=== PATIENT | female | born 1970 | race Two or more races ===

== ENCOUNTER 2020-05-25 10:38 | Outpatient (REF) | payer OTHER, SELFPAY ==
--- NOTE | 2020-05-25 10:45 | MM_ITS ---
EXAMINATION: MM SCREENING DIGITAL BREAST TOMOSYNTHESIS, BILATERAL CLINICAL INFORMATION: Screening. Asymptomatic. The lifetime risk of breast cancer based on the Tyrer-Cuzick Model is 7.8%. COMPARISON: Mammography: January 29, 2019 and studies dating back to March 03, 2012. TECHNIQUE: Digital breast tomosynthesis is performed in both the craniocaudal and mediolateral oblique views along with computer-aided detection (CAD). Synthesized 2D images are generated from the tomosynthesis. FINDINGS: The breasts are heterogeneously dense, which may obscure small masses (ACR BI-RADS breast composition Category c). There are no significant masses, abnormal calcifications, or other abnormalities. MM/MM tomosynthesis screening BI IMPRESSION: There are no significant changes from prior study. ASSESSMENT: BI-RADS 1: Negative RECOMMENDATION: Routine annual mammography screening. This patient's information was entered into a reminder system with a target due date for their next mammogram.
== END 2020-05-25 10:39 | disposition home or self-care (01) ==
LOC: HO.MAMMO 10:38
PROVIDERS: PCP Internal Medicine; Visit Provider Internal Medicine
DX: Z12.31 Encounter for screening mammogram for malignant neoplasm of breast (principal)
CPT/HCPCS: 77063; 77067

== ENCOUNTER 2020-06-09 09:35 | Outpatient (REF) | payer OTHER, SELFPAY ==
--- NOTE | 2020-06-09 09:45 | MR_ITS ---
EXAMINATION: MR ANGIOGRAPHY BRAIN WITHOUT CONTRAST CLINICAL INFORMATION: Daily persistent headache. Blurry vision for 2 weeks. COMPARISON: CT head from 03/16/2016. TECHNIQUE: 3D [id number] MR angiography was performed through the brain without the use of intravenous gadolinium and axial source images were reviewed along with rotating MIPs. FINDINGS: Normal flow-related signal within the anterior circulation without evidence of focal stenosis or occlusion of the intradural internal carotid, middle cerebral, or anterior cerebral arteries. Dominant right-sided vertebral artery. Otherwise, normal flow-related signal within the V4 segments of the vertebral arteries bilaterally. Normal appearance of the proximal posterior inferior cerebellar arteries bilaterally. Normal flow-related signal within the basilar artery and proximal portions of the superior cerebellar arteries. The P1 segments of the posterior cerebral arteries are mildly diminutive bilaterally. There is robust flow across bilateral posterior communicating arteries with persistent origins. Mild 0.2 cm sessile irregularity along the lateral wall of the paraophthalmic segment of the left ICA (image 93/164). Otherwise, no demonstrated intradural aneurysms. No additional significant abnormalities on limited evaluation of the intracranial structures. Rightward nasal septal deviation. Moderate mucous retention cyst within the left maxillary sinus. MR/MR angio head wo con IMPRESSION: 1. MRA without evidence of proximal occlusion or flow-limiting stenosis. 2. Slight irregularity along the lateral wall of the paraophthalmic segment of the left ICA may be artifactual or related to mild atherosclerotic disease. It would be difficult to fully exclude a tiny sessile aneurysm on the basis of this exam. No additional evidence of intracranial aneurysm. 3. Left maxillary mucous retention cyst.
== END 2020-06-09 09:36 | disposition home or self-care (01) ==
LOC: HO.MRI 09:35
PROVIDERS: Visit Provider Internal Medicine
DX: G44.52 New daily persistent headache (NDPH) (principal)
CPT/HCPCS: 70544

== ENCOUNTER 2021-03-21 11:19 | Outpatient (REF) | payer OTHER, SELFPAY ==
[2021-03-21 12:00] LABS: MANUAL DIFF FLAG NO
[2021-03-21 12:05] LABS: Basophils Percent Auto 0.5 % (0-2); Eosinophils Absolute Auto 0.1 X10*3/uL (0.0-0.4); Eosinophils Percent Auto 2.1 % (0-4); Hematocrit 38.8 % (37-47); Hemoglobin 12.4 g/dl (12.0-16.0); Lymphocytes Absolute Auto 2.1 X10*3/uL (1.2-4.9); Lymphocytes Percent Auto 54.9 % (20-40); Mean Corpuscular Hemoglobin 26.7 pg (27.0-33.0); Mean Corpuscular Volume 83.4 fL (80-98); Mean Platelet Volume 9.6 fL (9.4-12.3); Monocytes Absolute Auto 0.3 X10*3/uL (0.1-1.2); Monocytes Percent Auto 7.9 % (2-11); Neutrophils Absolute Auto 1.3 X10*3/uL (2.0-8.3); Neutrophils Percent Auto 34.6 % (45-73); Platelet Count 313 X10*3/uL (160-400); Red Blood Count 4.65 X10*6/uL (4.20-5.50); Red Cell Distribution Width 13.3 % (11.0-16.0); White Blood Count 3.8 X10*3/uL (4.8-10.8)
[2021-03-21 12:38] LABS: Alanine Aminotransferase 20 U/L (0-31); Albumin Level 4.2 g/dL (3.5-5.0); Alkaline Phosphatase 68 U/L (39-117); Anion Gap 12 (12-20); Aspartate Amino Transferase 20 U/L (5-31); Bilirubin Total 0.7 mg/dL (0.0-1.0); Blood Urea Nitrogen 10 mg/dL (9-16); Calcium 9.6 mg/dL (8.4-10.2); Carbon Dioxide 25 mmol/L (22-29); Chloride 109 mmol/L (96-108); Cholesterol 225 mg/dL; Estimated Glomerular Filt Rate > 60; Glucose Fasting 90 mg/dL (60-99); HDL Cholesterol 54 mg/dL; LDL Cholesterol Calculated 137 mg/dl; Sodium 142 mmol/L (135-145); Total Protein 7.5 g/dL (6.5-8.0); Triglycerides 170 mg/dL
[2021-03-27 13:17] LABS: Vitamin D 25-OH, D2 <4 ng/mL; Vitamin D 25-OH, D3 17 ng/mL; Vitamin D 25-OH, Total 17 ng/mL (30-100)
== END 2021-03-21 11:20 | disposition home or self-care (01) ==
LOC: HO.LAB 11:19
PROVIDERS: PCP Internal Medicine; Visit Provider Internal Medicine
DX: E55.9 Vitamin D deficiency, unspecified (principal); D64.9 Anemia, unspecified; K21.9 Gastro-esophageal reflux disease without esophagitis; E78.5 Hyperlipidemia, unspecified
CPT/HCPCS: 36415; 80053; 80061; 82306; 85025

== ENCOUNTER 2021-11-21 14:55 | Outpatient (REF) | payer OTHER, SELFPAY ==
--- NOTE | ~2021-11-21 | MR_ITS ---
MRI OF THE BRAIN WITHOUT IV CONTRAST INDICATION: Headache. COMPARISON: MRA head 06/09/2020. TECHNIQUE: Multiplanar multisequence MR imaging of the brain was obtained without IV contrast. FINDINGS: There is no hydrocephalus, extra-axial surface collection, or herniation. No parenchymal signal abnormality. The major flow voids at the skull base are preserved. There is no acute infarct on diffusion-weighted imaging. There is no intracranial hemorrhage on the gradient recalled echo acquisition. An 8mm unilocular pineal gland cyst abuts the upper tectal plate. The cerebellar tonsils are normally positioned. The cerebellum and brainstem are normal. The craniocervical junction is normal. Osseous marrow signal intensity is homogenous. The visualized soft tissues are unremarkable. Retention cyst within the left maxillary sinus. MR/MR head/brain wo con IMPRESSION: - No acute intracranial findings. - An 8mm unilocular pineal gland cyst abuts the upper tectal plate. - Retention cyst within the left maxillary sinus.
== END 2021-11-21 14:56 | disposition home or self-care (01) ==
LOC: HO.MRI 14:55
PROVIDERS: Visit Provider Internal Medicine
DX: R51.9 Headache, unspecified (principal)
CPT/HCPCS: 70551

== ENCOUNTER 2021-11-28 12:10 | Outpatient (REF) | payer OTHER, SELFPAY ==
[2021-11-28 12:21] LABS: MANUAL DIFF FLAG NO
[2021-11-28 13:08] LABS: Basophils Percent Auto 0.8 % (0-2); Eosinophils Absolute Auto 0.1 X10*3/uL (0.0-0.4); Eosinophils Percent Auto 1.9 % (0-4); Hematocrit 40.8 % (37.0-47.0); Hemoglobin 12.9 g/dl (12.0-16.0); Imm Gran Abs Auto 0.01 X10*3/uL (0.00-0.03); Imm Gran Pct Auto 0.3 % (0.0-0.4); Lymphocytes Percent Auto 54.5 % (20-40); Mean Corpuscular HGB Conc 31.6 g/dl (31.0-35.0); Mean Corpuscular Hemoglobin 26.4 pg (27.0-33.0); Mean Corpuscular Volume 83.4 fL (80.0-98.0); Mean Platelet Volume 9.5 fL (9.4-12.3); Monocytes Absolute Auto 0.3 X10*3/uL (0.1-1.2); Monocytes Percent Auto 8.8 % (2-11); Neutrophils Absolute Auto 1.2 x10*3/uL (2.0-8.3); Neutrophils Percent Auto 33.7 % (45-73); Platelet Count 322 X10*3/uL (160-400); Red Blood Count 4.89 X10*6/uL (4.20-5.50); Red Cell Distribution Width 13.2 % (11.0-16.0); White Blood Count 3.7 X10*3/uL (4.8-10.8)
[2021-11-28 13:35] LABS: Alanine Aminotransferase 16 U/L (0-31); Albumin Level 4.4 g/dL (3.5-5.0); Alkaline Phosphatase 71 U/L (39-117); Anion Gap 10 (12-20); Aspartate Amino Transferase 19 U/L (5-31); Bilirubin Total 0.9 mg/dL (0.0-1.0); Blood Urea Nitrogen 15 mg/dL (9-16); Calcium 10.1 mg/dL (8.4-10.2); Carbon Dioxide 28 mmol/L (22-29); Chloride 104 mmol/L (96-108); Cholesterol 268 mg/dL; Estimated Glomerular Filt Rate > 60; Glucose Fasting 92 mg/dL (60-99); HDL Cholesterol 60 mg/dL; LDL Cholesterol Calculated 180 mg/dl; Sodium 138 mmol/L (135-145); Triglycerides 140 mg/dL
[2021-11-28 13:57] LABS: Vitamin D 25-OH Total 17.7 ng/mL (>30)
== END 2021-11-28 12:11 | disposition home or self-care (01) ==
LOC: HO.LAB 12:10
PROVIDERS: PCP Internal Medicine; Visit Provider Internal Medicine
DX: K21.9 Gastro-esophageal reflux disease without esophagitis (principal); E78.5 Hyperlipidemia, unspecified; E55.9 Vitamin D deficiency, unspecified
CPT/HCPCS: 36415; 80053; 80061; 82306; 85025

== ENCOUNTER 2021-12-21 10:39 | Outpatient (REF) | payer OTHER, SELFPAY ==
--- NOTE | ~2021-12-21 | MM_ITS ---
EXAMINATION: MM SCREENING DIGITAL BREAST TOMOSYNTHESIS, BILATERAL CLINICAL INFORMATION: Screening. Asymptomatic. The lifetime risk of breast cancer based on the Tyrer-Cuzick Model is 5%. COMPARISON: Mammography: 05/25/2020, 01/29/2019, 07/19/2017 TECHNIQUE: Digital breast tomosynthesis is performed in both the craniocaudal and mediolateral oblique views along with computer-aided detection (CAD). Synthesized 2D images are generated from the tomosynthesis. FINDINGS: There are scattered areas of fibroglandular density (ACR BI-RADS breast composition Category b). There are no significant masses, abnormal calcifications, or other abnormalities. Breast tissue composition borders on heterogeneously dense. Parenchymal pattern is similar to prior studies. The axilla and skin contours are unremarkable. No significant changes. MM/MM tomosynthesis screening BI IMPRESSION: No mammographic evidence of malignancy. ASSESSMENT: BI-RADS 1: Negative RECOMMENDATION: Routine annual mammography screening. This patient's information was entered into a reminder system with a target due date for their next mammogram.
== END 2021-12-21 10:40 | disposition home or self-care (01) ==
LOC: HO.MAMMO 10:39
PROVIDERS: PCP Internal Medicine; Visit Provider Internal Medicine
DX: Z12.31 Encounter for screening mammogram for malignant neoplasm of breast (principal)
CPT/HCPCS: 77063; 77067

== ENCOUNTER 2022-09-25 10:49 | Outpatient (REF) | payer OTHER, SELFPAY ==
[2022-09-25 11:10] LABS: MANUAL DIFF FLAG NO
[2022-09-25 11:47] LABS: Basophils Absolute Auto 0.1 X10*3/uL (0.0-0.2); Basophils Percent Auto 1.1 % (0-2); Eosinophils Absolute Auto 0.2 X10*3/uL (0.0-0.4); Eosinophils Percent Auto 3.4 % (0-4); Hematocrit 40.8 % (37.0-47.0); Hemoglobin 12.9 g/dl (12.0-16.0); Imm Gran Abs Auto 0.01 X10*3/uL (0.00-0.03); Imm Gran Pct Auto 0.2 % (0.0-0.4); Lymphocytes Absolute Auto 2.4 X10*3/uL (1.2-4.9); Mean Corpuscular HGB Conc 31.6 g/dl (31.0-35.0); Mean Corpuscular Hemoglobin 26.3 pg (27.0-33.0); Mean Corpuscular Volume 83.1 fL (80.0-98.0); Mean Platelet Volume 9.1 fL (9.4-12.3); Monocytes Absolute Auto 0.4 X10*3/uL (0.1-1.2); Neutrophils Absolute Auto 1.4 x10*3/uL (2.0-8.3); Neutrophils Percent Auto 31.3 % (45-73); Platelet Count 345 X10*3/uL (160-400); Red Blood Count 4.91 X10*6/uL (4.20-5.50); Red Cell Distribution Width 13.1 % (11.0-16.0); White Blood Count 4.4 X10*3/uL (4.8-10.8)
[2022-09-25 11:55] LABS: Influenza A PCR NEGATIVE (Negative); Influenza B PCR NEGATIVE (Negative); Resp Syncy Virus RNA Qual PCR NEGATIVE (Negative); SARS COV2 PCR INHOUSE NEGATIVE (Negative)
[2022-09-25 12:34] LABS: Alanine Aminotransferase 16 U/L (0-31); Albumin Level 4.2 g/dL (3.5-5.0); Alkaline Phosphatase 62 U/L (39-117); Anion Gap 11 (12-20); Aspartate Amino Transferase 17 U/L (5-31); Bilirubin Total 0.6 mg/dL (0.0-1.0); Blood Urea Nitrogen 15 mg/dL (9-16); Calcium 9.4 mg/dL (8.4-10.2); Carbon Dioxide 25 mmol/L (22-29); Chloride 107 mmol/L (96-108); Cholesterol 228 mg/dL; Estimated Glomerular Filt Rate > 60; Glucose Fasting 92 mg/dL (60-99); HDL Cholesterol 51 mg/dL; LDL Cholesterol Calculated 158 mg/dl; Potassium 4.3 mmol/L (3.3-5.1); Sodium 139 mmol/L (135-145); Total Protein 7.3 g/dL (6.5-8.0); Triglycerides 97 mg/dL
[2022-09-25 12:51] LABS: Vitamin D 25-OH Total 13.8 ng/mL (>30)
== END 2022-09-25 10:50 | disposition home or self-care (01) ==
LOC: HO.LAB 10:49
PROVIDERS: PCP Internal Medicine; Visit Provider Internal Medicine
DX: Z20.822 Contact with and (suspected) exposure to COVID-19 (principal); E78.5 Hyperlipidemia, unspecified; D64.9 Anemia, unspecified; G44.52 New daily persistent headache (NDPH); E55.9 Vitamin D deficiency, unspecified; R09.89 Other specified symptoms and signs involving the circulatory and respiratory systems
CPT/HCPCS: 0241U; 80053; 80061; 82306; 85025

== ENCOUNTER 2022-11-07 10:27 | Outpatient (REF) | payer OTHER, SELFPAY ==
--- NOTE | ~2022-11-07 | FL_ITS ---
EXAMINATION: FL BARIUM SWALLOW CLINICAL INFORMATION: Dysphasia COMPARISON: Incomplete study of 10/31/2018. TECHNIQUE: Barium swallow examination is performed using fluoroscopic evaluation in addition to multiple fluoroscopic spot views. The patient is imaged both upright and prone and using both thick and thin sulfate along with effervescent granules. Fluoroscopy time: 1.5 minutes DAP: 5.609 Gy-cm2 Images: 73 FINDINGS: There is normal apposition of the vocal cords while saying E. There is normal elevation of the soft palate while saying candy. Patient swallowed thin and thick barium. The patient was unable to swallow half-inch diameter barium tablet. No nasopharyngeal reflux or tracheal aspiration was noted. Patient did have delay in swallowing. No cricopharyngeal hypertrophy or Zenker's diverticulum. No persistent stricture or mucosal abnormality. No gastroesophageal reflux was elicited including with water siphon test. FL/FL barium swallow IMPRESSION: Inability to swallow barium tablet. Mild delay in swallowing.
== END 2022-11-07 10:28 | disposition home or self-care (01) ==
LOC: HO.XRAY 10:27
PROVIDERS: PCP Internal Medicine; Visit Provider Internal Medicine
DX: R13.10 Dysphagia, unspecified (principal)
CPT/HCPCS: 74220

== ENCOUNTER 2022-11-12 10:34 | Emergency (ER) | payer OTHER, SELFPAY ==
[2022-11-12 10:38] VITALS: BP 114/82; PULSE 110; RESP 18; TEMP 36.7; O2SAT 99; BMI 27.2
--- NOTE | 2022-11-12 11:11 | ED_ITS ---
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 Patient states that over the last 2 days she has had a sore throat, headache, and earache. Patient denies any dizziness, lightheadedness, abdominal pain, nausea, vomiting, fever, chills, blurry vision, double vision, loss of vision, chest pain, difficulty breathing, shortness of breath, back pain, night sweats, pain with urination, increased urinary frequency, increased urinary urgency, blood in her urine or stool, syncope or a near syncopal episode, recent trauma or falls, bowel incontinence, bladder incontinence, bowel retention, bladder retention, or any other complaints at this time. Onset (ago): day(s) (2) Severity: mild Severity scale (1-10): 2 Relieving factors: none Exacerbating factors: none Associated symptoms: denies other symptoms Treatments prior to arrival: none Related Data Previous Rx's Medication Instructions Recorded sumatriptan succinate 25 mg tablet 25 mg PO Q2-4H PRN migraine 03/25/22 headache 30 days #9 tabs famotidine 40 mg tablet 40 mg PO BID 30 days #60 tabs 06/12/22 cholecalciferol (vitamin D3) 50 50 mcg PO DAILY 90 days #90 caps 09/26/22 mcg (2,000 unit) capsule penicillin V potassium 250 mg/5 mL 500 mg (10 mL) PO QID 10 days #400 11/12/22 oral solution mL penicillin V potassium 500 mg 500 mg PO BID 10 days #20 tabs 11/12/22 tablet Allergies Allergy/AdvReac Type Severity Reaction Status Date / Time amitriptyline Allergy Intermediate constipatio Verified 09/25/22 10:24 n omeprazole Allergy Intermediate inadequate Verified 09/25/22 10:24 response pantoprazole Allergy Intermediate inadequate Verified 09/25/22 10:24 response ranitidine Allergy Intermediate inadequate Verified 09/25/22 10:24 response tree nut [TREE NUT] Allergy Intermediate THROAT Verified 09/25/22 10:24 ITCHES FRUIT, SKINS Allergy Intermediate THROAT Uncoded 09/25/22 10:24 ITCHES Review of Systems Constitutional: Constitutional: Reports no additional constitutional complaints, Denies chills, Denies fever(s), Reports headache(s) and Denies night sweats Eyes: Eyes: Reports no additional eye complaints, Denies blurry vision, Denies change in vision, Denies diplopia, Denies eye discharge, Denies loss of vision and Denies eye pain ENT: Denies dizziness, Reports headache(s) and Reports sore throat Cardiovascular: Cardiovascular: Reports no additional cardiovascular complaints, Denies chest pain, Denies lightheadedness, Denies Loss of Consciousness and Denies dyspnea Respiratory: Respiratory: Reports no additional respiratory complaints and Denies dyspnea Gastrointestinal: Gastrointestinal: Reports no additional gastrointestinal complaints, Denies abdominal pain, Denies melena, Denies hematochezia, Denies change in bowel habits and Denies change in stool character Genitourinary: Genitourinary: Denies hematuria, Denies urinary frequency, Denies dysuria, Denies urinary incontinence, Denies urinary hesitancy and Denies urinary urgency Musculoskeletal: Musculoskeletal: Reports no additional musculoskeletal complaints, Denies numbness and Denies tingling Neurologic: Denies dizziness, Reports headache(s), Denies loss of vision, Denies numbness and Denies tingling Psychiatric: Psychiatric: Reports no additional psychiatric complaints Endocrine: Endocrine: Reports no additional endocrine complaints Hematologic/Lymphatic: Hematologic/Lymphatic: Reports no additional hematologic/lymphatic complaints Allergic/Immunologic: Allergic/Immunologic: Reports no additional allergic/immunologic complaints FOR[facility]LY [facility], [facility] Past Medical History Attestation statement: The following information was validated with the patient. Source: old records reviewed and nursing notes reviewed Medical History Callus of foot Dyslipidemia GERD (gastroesophageal reflux disease) Headache Hypovitaminosis D Pineal gland cyst Surgical History History of tubal ligation Family History Family History Father Medical history unknown Mother Diabetes Hypertension Brother Homicide Maternal Grandmother Myocardial infarction Brother Homicide Brother In good health Daughter In good health Daughter In good health Son In good health Son In good health Social History Social History Housing: Apartment Alcohol intake: never Patient Tobacco Use Status: Never used Tobacco e-Cigarette/Vaping Use: Never Used Second Hand Smoke Exposure: No Advance Directives: No Advance Directives Information Provided: No service: No Current occupational status: other Cognitive needs: No Hearing needs: No Vision needs: No Physical Exam ED Vital Signs: Vital Signs - 24 hr 11/12/22 10:38 Temperature 98.1 F Pulse Rate 110 H Respiratory Rate 18 Blood Pressure 114/82 Pulse Oximetry 99 Oxygen Delivery Method Room Air BMI result Body Mass Index 27.2 Const General: cooperative, no acute distress, alert and awake Nutritional Appearance: well nourished Orientation/consciousness: patient oriented x3 Limitations: no limitations HENMT Head: Yes normal to inspection and Yes atraumatic Ears: hearing grossly normal bilaterally and external ears normal General nose exam: Normal external nose present, no nasal discharge noted and no epistaxis Face and sinus: Yes normal facial exam, No abrasion and No laceration Mouth: Normal oral and palatal mucosa present, no drooling and no muffled voice Throat: Yes abnormal tonsil (erythema and exudates present) Eyes General: appearance normal, both eyes and all related structures Periorbital: periorbital findings normal Eyelids: Yes eyelids normal Conjunctivae: conjunctivae normal Pupils: Equal, round and reactive pupils present EOM: EOMs intact bilaterally Neck Neck: Yes normal visual inspection, Yes full ROM and Yes no lymphadenopathy Chest Chest palpation & inspection: normal inspection of the chest Resp Effort & Inspection: normal respiratory effort and able to speak in complete sentences GI Inspection: Yes normal to inspection Neuro General: patient oriented x3 and moves all extremities Cranial nerves: Yes Equal, round and reactive pupils present Cognition (Neuro): normal cognition Motor exam (neuro): 5/5 motor strength present throughout Sensory Exam: Normal double simultaneous stimulation for sensation Coordination: [id number] test normal Extrem General: Yes normal to inspection, Yes full ROM and Yes capillary refill normal Psych Appearance: grossly normal Mental Status: mental status grossly normal Affect: normal affect Attitude: cooperative Thought process: Normal thought process present Thought content: Normal thought content present Insight: Good insight present (Psych) Medications Administered Discontinued Medications Generic Name Dose Route Start Last Admin Trade Name Freq PRN Reason Stop Dose Admin Acetaminophen 975 mg 11/12/22 12:24 11/12/22 12:40 Acetaminophen 325 Mg Tablet PO 11/12/22 12:25 975 mg ONCE ONE Administration Penicillin V Potassium 500 mg 11/12/22 12:24 11/12/22 12:40 Penicillin V Potassium 250 Mg Tablet PO 11/12/22 12:25 500 mg ONCE ONE Administration Medical Decision Making Medical Decision Making [facility] Narrative: Patient is a 52 year old assigned female at with a history of GERD presenting to the emergency department today with a sore throat and a headache. Patient's physical exam showed bilateral tonsil erythema and exudates. Patient's strep test was positive. I explained my physical exam findings as well as all test results to the patient. I answered all questions asked by the patient. I stressed the importance of the patient taking her medication as prescribed. I stressed the importance of the patient following up with her primary care provider. I stressed the importance of the patient returning to the emergency department immediately if her symptoms were to worsen or if she were to develop any dizziness, shortness of breath, difficulty breathing, chest pain, blurry vision, loss of vision, nausea, vomiting, abdominal pain, fever, chills, back pain, or any other complaints. Patient verbalized agreement and understanding with this treatment plan and discharge. Differential Diagnosis Differential Diagnoses: The differential diagnosis associated with the presentation includes strep pharyngitis Lab Data [facility] Lab Attestation statement: I reviewed the patient's lab results. Labs: Lab Results 11/12/22 11/12/22 11/12/22 Range/Units 11:31 11:31 11:42 COVID-19 (HERNÁN) Negative (Negative) COVID-19 Clin Com See Note Influenza Type A (ROXIE) Negative (Negative) Influenza Type B (ROXIE) Negative (Negative) Influenza A & B Note See Note S. pyogenes GrpA ROXIE Positive A (Negative) Discharge Plan Discharge Clinical Impression: Strep pharyngitis Patient Disposition: Home, Self-Care Instructions: Strep Throat (DC) Additional Instructions: Follow up with your primary care provider. Return to the emergency department immediately if your symptoms worsen or if you develop any dizziness, shortness of breath, difficulty breathing, chest pain, blurry vision, loss of vision, nausea, vomiting, abdominal pain, fever, chills, back pain, or any other complaints. Franco un seguimiento con laguna proveedor de atenci?n primaria. Regrese al departamento de emergencias de inmediato si cristi s?ntomas empeoran o si presenta mareos, falta de aire, dificultad para respirar, dolor de pecho, visi?n borrosa, p?rdida de la visi?n, n?useas, v?mitos, dolor abdominal, fiebre, escalofr?os, dolor de espalda o cualquier otras quejas. Prescriptions: New penicillin V potassium 500 mg tablet 500 mg PO BID 10 Days Qty: 20 0RF penicillin V potassium 250 mg/5 mL recon soln 500 mg PO QID 10 Days Qty: 400 0RF No Action sumatriptan succinate 25 mg tablet 25 mg PO Q2-4H PRN (Reason: migraine headache) 30 Days Qty: 9 3RF Rx Instructions: do not exceed 8 doses per 24 hrs famotidine 40 mg tablet 40 mg PO BID 30 Days Qty: 60 3RF cholecalciferol (vitamin D3) 50 mcg (2,000 unit) capsule 50 mcg PO DAILY 90 Days Qty: 90 1RF Referrals: Aisha Meza MD [Primary Care Provider] - Interventions: ED Discharge Assessment Last Done: 11/12/22 12:41 Discharge Date/Time: 11/12/22 12:42 Print Language: Kazakh
[2022-11-12 11:57] LABS: COVID-19 Test Negative (Negative); IDNOW Serial# 55D5AD1C; IDNOW Serial# 9DB6401D; Influenza A Negative (Negative); Influenza B2 Negative (Negative)
[2022-11-12 12:08] LABS: IDNOW Serial# 08D9AD1C; Strep A Nucleic Acid Positive (Negative)
[2022-11-12] MEDS: Penicillin V Potassium 250 MG TABLET 500 MG PO (12:40)
[2022-11-12] MEDS: Acetaminophen 325 MG TABLET 975 MG PO (12:40)
== END 2022-11-12 12:42 | disposition home or self-care (01) ==
PROVIDERS: Emergency Provider Emergency Medicine; PCP Internal Medicine
DX: J02.9 Acute pharyngitis, unspecified (principal); Z20.822 Contact with and (suspected) exposure to COVID-19; Z20.828 Contact with and (suspected) exposure to other viral communicable diseases
CPT/HCPCS: 87502; 87635; 87651; 99283

== ENCOUNTER → 2022-12-25 10:46 | Outpatient (BNVA) | payer OTHER, SELFPAY | PROVIDERS: PCP Internal Medicine; Visit Provider Internal Medicine | DX: Z12.11 Encounter for screening for malignant neoplasm of colon (principal); R93.3 Abnormal findings on diagnostic imaging of other parts of digestive tract | CPT/HCPCS: 99202 ==

== ENCOUNTER 2023-01-01 10:19 | Outpatient (REF) | payer OTHER, SELFPAY ==
--- NOTE | ~2023-01-01 | MR_ITS ---
EXAMINATION: MR BRAIN WITHOUT AND WITH CONTRAST CLINICAL INFORMATION: 52-year-old with pineal cyst. COMPARISON: 11/21/2021 MRI. TECHNIQUE: Multiplanar, multisequence MRI of the brain was obtained before and after the intravenous administration of 6.5 mL Gadavist. FINDINGS: Brain Volume: Within normal limits within the limitations of qualitative assessment. Structural: Redemonstrated is a unilocular benign pineal cyst measuring 0.9 cm greatest dimension, unchanged in appearance from the previous study, which abuts the superior tectal plate. Brain and Meninges: DWI sequence demonstrates no restricted diffusion to suggest acute or subacute cerebral ischemia. The brain parenchyma is normal in morphology and signal intensity. Souza-white matter interface is preserved. No enhancing intracranial mass lesions, extra-axial fluid collections, pathologic intracranial enhancement, or significant mass effect identified. Gradient refocused imaging demonstrates no abnormal susceptibility-weighted signal loss to suggest hemorrhage, hemosiderin staining or abnormal mineralization. Ventricles and Subarachnoid Spaces: The ventricular system and subarachnoid spaces are within normal range; there is no hydrocephalus. Orbital Structures: The visualized orbital structures are grossly unremarkable within the limitations of the study. Vascular: Signal voids are noted in the visualized major intracranial vessels. Osseous Structures, Sinuses/Mastoids, Extracranial Soft Tissues: Bone marrow signal intensity appears within normal limits. Small right mastoid effusion noted on current exam which is a new finding and is nonspecific. Prominent retention cyst left maxillary sinus, stable in appearance. Visualized extracranial soft tissue structures are unremarkable. MR/MR head/brain wo/w con IMPRESSION: 1. Stable 0.9 cm benign pineal cyst. 2. Otherwise normal MRI of the brain without and with contrast. 3. Small right mastoid effusion which is a new finding, nonspecific.
== END 2023-01-01 10:20 | disposition home or self-care (01) ==
LOC: HO.MRI 10:19
PROVIDERS: PCP Internal Medicine; Visit Provider Neurological Surgery
DX: D35.4 Benign neoplasm of pineal gland (principal)
CPT/HCPCS: 70553; A9585

== ENCOUNTER 2023-03-05 14:44 | Outpatient (AMB) | payer OTHER, SELFPAY ==
--- NOTE | 2023-03-05 14:48 | MHC.PC.OV ---
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 Accompanied by: Self / Same As Patient Allergies amitriptyline Allergy (Intermediate, Verified 03/05/23 15:04) constipation omeprazole Allergy (Intermediate, Verified 03/05/23 15:04) inadequate response pantoprazole Allergy (Intermediate, Verified 03/05/23 15:04) inadequate response ranitidine Allergy (Intermediate, Verified 03/05/23 15:04) inadequate response tree nut [TREE NUT] Allergy (Intermediate, Verified 03/05/23 15:04) THROAT ITCHES FRUIT, SKINS Allergy (Intermediate, Uncoded 03/05/23 15:04) THROAT ITCHES Medication List - Last Reconciled 03/05/23 by Aisha Olvera MD cholecalciferol (vitamin D3) 50 mcg PO DAILY 90 days famotidine 40 mg PO BID 30 days peg 3350-electrolytes 236-22.74-6.74 -5.86 gram (Golytely) 240 mL PO Q10M sucralfate 1 g (10 mL) PO QID sumatriptan succinate 25 mg PO Q2-4H PRN 30 days Tobacco use date assessed: 09/25/22 Dental Screening Dental Screen Date: 03/05/23 Did you have a dental visit in the last 12 months?: Yes Did you have a dental problem in the last 6 months where you did not have access to dental care?: No Was dental information given to patient?: Patient has dentist HPI HPI Comments History of Present Illness Details This is a 52-year-old female that comes for her physical exam. Last mammogram was over a year ago when she complains of left breast mass at 02:00 o'clock that has been present for few weeks. No nipple discharge. Will have endoscopy and colonoscopy this month. Last Pap smear was over 3 years ago. Occasional chest pain that happens at rest most likely not cardiac in origin. No shortness of breath. Aware of the MRI of the brain results. [facility] Medical History (Updated 03/05/23 @ 15:23 by Aisha Olvera MD) Callus of foot Dyslipidemia GERD (gastroesophageal reflux disease) Headache Hypovitaminosis D Pineal gland cyst Surgical History History of tubal ligation Family History Father Medical history unknown Mother Diabetes Hypertension Brother Homicide Maternal Grandmother Myocardial infarction Brother Homicide Brother In good health Daughter In good health Daughter In good health Son In good health Son In good health Social History Housing: Apartment Alcohol intake: never Patient Tobacco Use Status: Never used Tobacco e-Cigarette/Vaping Use: Never Used Second Hand Smoke Exposure: No service: No Current occupational status: other Cognitive needs: No Hearing needs: No Vision needs: No Questionnaire PHQ-9 Over the last 2 weeks, how often have you been bothered by any of the following problems? 1. Little interest or pleasure in doing things: not at all 2. Feeling down, depressed, or hopeless: not at all 3. Trouble falling or staying asleep, or sleeping too much: not at all 4. Feeling tired or having little energy: not at all 5. Poor appetite or overeating: not at all 6. Feeling bad about yourself - or that you are a failure or have let yourself or your family down: not at all 7. Trouble concentrating on things, such as reading the newspaper or watching television: not at all 8. Moving or speaking so slowly that other people could have noticed. Or the opposite - being so fidgety or restless that you have been moving around a lot more than usual: not at all 9. Thoughts that you would be better off or of hurting yourself in some way: not at all Total score: 0 Depression Screening Interpretation: Negative 70379 - PHQ-9 Billing: Yes Source: Developed by Drs. Benjamín Patel, Lolis Bush, Del Nino and colleagues, with an educational kiki from [employer]. Thrive Questionnaire Date Thrive assessed: 03/05/23 I am a: Patient What is your living situation today?: I have a steady place to live Within the past 12 months, did the food you bought not last and you didn't have the money to get more?: Never true Within the past 12 months, did you worry whether your food would run out before you got money to buy more?: Never true Do you have trouble paying for medicines?: No Do you have trouble getting transportation to medical appointments?: No Do you have trouble paying your heating and electricity bill?: No Do you have trouble taking care of your child, family member or friend?: No Do you have trouble with day-to-day activities such as bathing, preparing meals, shopping, managing finances, etc.?: No Are you currently unemployed and looking for a job?: No Are you interested in more education?: No Please select the resources that you would like help with: None Currently or been in a relationship where the following occur: no concerns reported AUDIT C Alcohol Use Questionnaire (AUDIT-C) 1. How often do you have a drink containing alcohol?: Never Total Score: 0 Score Reviewed/Action Taken: No AGAPITO-7 AMB Questionnaire AGAPITO-7 Date AGAPITO - 7 assessed: 03/05/23 Feeling nervous, anxious, or on edge: 0 = Not at all Not being able to stop or control worryin = Not at all Worrying too much about different things: 0 = Not at all Trouble relaxin = Not at all Being so restless that it is hard to sit still: 0 = Not at all Becoming easily annoyed or irritable: 0 = Not at all Feeling afraid as if something awful might happen: 0 = Not at all Total AGAPITO-7 score (0-4 normal; 5-9 mild; 10-14 moderate; 15-21 severe): 0 Source: Developed by Drs. Benjamín Patel, Lolis Bush, Del Nino and colleagues, with an educational kiki from [employer]. AGAPITO-7 Assessment Billing AGAPITO-7 Assessment Tool: AGAPITO-7 Assessment 91818 Review of Systems Const All systems reviewed & are unremarkable except as noted in HPI and below Eyes Reports no additional complaints, Denies change in vision and Denies other visual disturbances Card Denies chest pain at rest, Denies chest pain with activity, Denies edema, Denies irregular heart rhythm, Denies claudication, Denies dyspnea, Denies dyspnea on exertion, Denies orthopnea, Denies paroxysmal nocturnal dyspnea and Denies slow heart rate Resp Denies cough, Denies dyspnea and Denies dyspnea on exertion GI Denies abdominal pain, Denies change in bowel habits, Denies excessive flatus, Denies nausea and Denies vomiting Denies urinary incontinence, Denies urinary hesitancy and Denies urinary urgency Musc Denies abnormal gait, Denies atrophy, Denies deformity and Denies limited range of motion Skin/Breast Denies bleeding lesions, Reports breast mass, Denies changing lesions and Denies rash Neuro Denies abnormal gait and Denies lack of coordination Physical exam (Primary Care) Vital Signs: Last Vital Signs BP 122/80 03/05/23 14:50 BMI result Body Mass Index 29.7 Tobacco/Smoking Status: Tobacco use Status Tobacco use date assessed 09/25/22 03/05/23 14:54 Patient Tobacco Use Status Never used Tobacco 03/05/23 14:54 e-Cigarette/Vaping Use Never Used 03/05/23 14:54 PHQ-9: PHQ-9 Score PHQ-9: Total score 0 03/05/23 14:54 Depression Screening Interpretation: Negative Thrive Assessment: Date of Thrive Assessment Date Thrive assessed 03/05/23 03/05/23 14:54 Currently or been in a relationship where the following occur: no concerns reported Const Orientation/consciousness: patient oriented x3 [facility] Head: Yes normal to inspection, Yes normocephalic and Yes atraumatic Ears: external ears normal Eyes General: appearance normal, both eyes and all related structures Eyelids: Yes eyelids normal Conjunctivae: conjunctivae normal Neck Neck: Yes normal visual inspection and Yes supple Chest Breast/axilla palpation: abnormal palpation of the breast (Left breast mass at 02:00 o'clock) Resp Effort & Inspection: normal respiratory effort Auscultation: clear to auscultation bilaterally Cardio Jugular venous distension: no JVD Rate: regular rate Rhythm: regular rhythm Heart sounds: S1 normal heart sound present and S2 normal heart sound present GI Inspection: Yes normal to inspection Palpation (GI): Soft to palpation and nontender Auscultation: normal bowel sounds Skin General skin exam: no rashes or lesions noted Neuro General: patient oriented x3 and no focal motor deficits Extrem General: Yes full ROM Psych Appearance: grossly normal Assessment and Plan Assessment & Plan (1) Physical exam: Code(s): Z00.00 - Encounter for general adult medical examination without abnormal findings Plan: Repeat in a year Orders: Orders MM diagnostic mammo BI Today N63.20 - Unspecified lump in the left breast, unspecified quadrant Comprehensive [place]. Panel Fast Today E78.5 - Hyperlipidemia, unspecified Lipid Panel Today E78.5 - Hyperlipidemia, unspecified Vitamin D 25-OH Total Today E55.9 - Vitamin D deficiency, unspecified ECG 12 lead EKG Today E78.5 - Hyperlipidemia, unspecified, R07.9 - Chest pain, unspecified Referrals [facility] Referral Z12.4 - Encounter for screening for malignant neoplasm of cervix Coding Level of Care Code Est Pt Prev Care 40-64y(46761) Diagnoses Physical exam Z00.00 Additional Codes AGAPITO-7 Assessment Billing - AGAPITO-7 Assessment Tool: AGAPITO-7 Assessment 45317 ([id number]) Time Spent (min) 30
[2023-03-05 14:50] VITALS: BP 122/80; BMI 29.7
== END 2023-03-05 15:26 | disposition home or self-care (01) ==
PROVIDERS: PCP Internal Medicine; Visit Provider Internal Medicine
DX: Z00.00 Encounter for general adult medical examination without abnormal findings (principal)
CPT/HCPCS: 99396

== ENCOUNTER 2024-01-21 08:10 | Outpatient (AMB) | payer OTHER, SELFPAY ==
[2024-01-21 08:20] VITALS: BP 118/78; BMI 30.1
--- NOTE | 2024-01-21 08:20 | A.OFFPC_ITS ---
Vital Signs 01/21/24 08:20 Height 4 ft 11 in Weight 149 lb BMI 30.1 BP 118/78 Blood Pressure Location Lt brachial Position Sitting Intake Visit Reasons: migrane Intake Note: Patient here for a follow up migraines with nausea, loss of voice Venereal Disease Control Head Required: No Accompanied by: Self / Same As Patient Allergies amitriptyline Allergy (Intermediate, Verified 01/21/24 08:42) constipation tree nut [TREE NUT] Allergy (Intermediate, Verified 01/21/24 08:42) THROAT ITCHES omeprazole Adverse Reaction (Intermediate, Verified 01/21/24 08:42) inadequate response pantoprazole Adverse Reaction (Intermediate, Verified 01/21/24 08:42) inadequate response ranitidine Adverse Reaction (Intermediate, Verified 01/21/24 08:42) inadequate response FRUIT, SKINS Allergy (Intermediate, Uncoded 01/21/24 08:42) THROAT ITCHES Medication List - Last Reconciled 01/21/24 by Aisha Olvera MD cholecalciferol (vitamin D3) 50 mcg PO DAILY 90 days famotidine 40 mg PO BID 30 days sumatriptan succinate 25 mg PO Q2-4H PRN 30 days Tobacco use date assessed: 01/21/24 Dental Screening Dental Screen Date: 01/21/24 Did you have a dental visit in the last 12 months?: Yes Did you have a dental problem in the last 6 months where you did not have access to dental care?: No Was dental information given to patient?: Patient has dentist HPI HPI Comments History of Present Illness Details This is a 53-year-old female with chronic GERD and low vitamin-D that complains of voice hoarseness that has been present for about a year and I will refer her to ENT. GERD still somewhat present with medications and I will order upper GI series. GERD might be related to this voice hoarseness. On vitamin-D supplements for her low vitamin-D. She also has a new daily persistent headache that has been present for the past few weeks. Will be referred to Neurology and add Topamax at bedtime for migraine prophylaxis. She said her headaches are worsening. She also has a pineal gland cyst that was benign last year and MRI of the brain was order to see if it has changed. No chest pain or shortness on breath. [facility] Medical History (Updated 01/21/24 @ 08:48 by Aisha Olvera MD) Pineal gland cyst Hypovitaminosis D Dyslipidemia Callus of foot Headache GERD (gastroesophageal reflux disease) Surgical History History of esophagogastroduodenoscopy (EGD) History of tubal ligation Family History Father Medical history unknown Mother Diabetes Hypertension Brother Homicide Maternal Grandmother Myocardial infarction Brother Homicide Brother In good health Daughter In good health Daughter In good health Son In good health Son In good health Social History Housing: Apartment Alcohol intake: never Patient Tobacco Use Status: Never used Tobacco e-Cigarette/Vaping Use: Never Used Second Hand Smoke Exposure: No service: No Current occupational status: other Cognitive needs: No Hearing needs: No Vision needs: Yes Questionnaire PHQ-9 Over the last 2 weeks, how often have you been bothered by any of the following problems? 1. Little interest or pleasure in doing things: not at all 2. Feeling down, depressed, or hopeless: not at all 3. Trouble falling or staying asleep, or sleeping too much: not at all 4. Feeling tired or having little energy: not at all 5. Poor appetite or overeating: not at all 6. Feeling bad about yourself - or that you are a failure or have let yourself or your family down: not at all 7. Trouble concentrating on things, such as reading the newspaper or watching television: not at all 8. Moving or speaking so slowly that other people could have noticed. Or the opposite - being so fidgety or restless that you have been moving around a lot more than usual: not at all 9. Thoughts that you would be better off or of hurting yourself in some way: not at all Total score: 0 Depression Screening Interpretation: Negative Depression Screening Done: Yes 03437 - PHQ-9 Billing: Yes Source: Developed by Drs. Benjamín Patel, Lolis Bush, Del Nino and colleagues, with an educational kiki from [employer]. Thrive Questionnaire Date Thrive assessed: 01/21/24 I am a: Patient What is your living situation today?: I have a steady place to live Within the past 12 months, did the food you bought not last and you didn't have the money to get more?: Never true Within the past 12 months, did you worry whether your food would run out before you got money to buy more?: Never true Do you have trouble paying for medicines?: No Do you have trouble getting transportation to medical appointments?: No Do you have trouble paying your heating and electricity bill?: No Do you have trouble taking care of your child, family member or friend?: No Do you have trouble with day-to-day activities such as bathing, preparing meals, shopping, managing finances, etc.?: No Are you currently unemployed and looking for a job?: No Are you interested in more education?: No Please select the resources that you would like help with: None Currently or been in a relationship where the following occur: no concerns reported THRIVE Score: 0 AUDIT C Alcohol Use Questionnaire (AUDIT-C) 1. How often do you have a drink containing alcohol?: Never Total Score: 0 AGAPITO-7 AMB Questionnaire AGAPITO-7 Date AGAPITO - 7 assessed: 01/21/24 Feeling nervous, anxious, or on edge: 2 = More than half the days Not being able to stop or control worryin = Not at all Worrying too much about different things: 2 = More than half the days Trouble relaxin = Several days Being so restless that it is hard to sit still: 0 = Not at all Becoming easily annoyed or irritable: 0 = Not at all Feeling afraid as if something awful might happen: 1 = Several days Total AGAPITO-7 score (0-4 normal; 5-9 mild; 10-14 moderate; 15-21 severe): 6 Source: Developed by Drs. Benjamín Patel, Lolis Bush, Del Nino and colleagues, with an educational kiki from [employer]. AGAPITO-7 Assessment Billing AGAPITO-7 Assessment Tool: AGAPITO-7 Assessment 57116 Review of Systems Const All systems reviewed & are unremarkable except as noted in HPI and below Reports headache(s) ENT Reports headache(s) Card Denies chest pain at rest, Denies chest pain with activity, Denies edema, Denies irregular heart rhythm, Denies claudication, Denies dyspnea, Denies dyspnea on exertion, Denies orthopnea, Denies paroxysmal nocturnal dyspnea and Denies slow heart rate Resp Denies cough, Denies dyspnea and Denies dyspnea on exertion Neuro Reports headache(s) Physical exam (Primary Care) Vital Signs: Last Vital Signs BP 118/78 01/21/24 08:20 BMI result Body Mass Index 30.1 BMI Assessment/Plan discussion: High BMI High, discussed plan: lifestyle, weight reduction, dietary and physical activity Tobacco/Smoking Status: Tobacco use Status Tobacco use date assessed 01/21/24 01/21/24 08:26 Patient Tobacco Use Status Never used Tobacco 01/21/24 08:26 e-Cigarette/Vaping Use Never Used 01/21/24 08:26 PHQ-9: PHQ-9 Score PHQ-9: Total score 0 01/21/24 08:26 Depression Screening Interpretation: Negative Thrive Assessment: Date of Thrive Assessment Date Thrive assessed 01/21/24 01/21/24 08:26 Currently or been in a relationship where the following occur: no concerns reported Resp Effort & Inspection: normal respiratory effort Auscultation: clear to auscultation bilaterally Cardio Jugular venous distension: no JVD Rate: regular rate Rhythm: regular rhythm Heart sounds: S1 normal heart sound present and S2 normal heart sound present Extrem General: Yes full ROM Assessment and Plan Assessment & Plan (1) New persistent daily headache: Code(s): G44.52 - New daily persistent headache (NDPH) Plan: MRI of the brain ordered. Referred to neurology. Start Topamax at bedtime for migraine prophylaxis. (2) Chronic GERD: Code(s): K21.9 - Gastro-esophageal reflux disease without esophagitis Plan: Continue famotidine. Upper GI series ordered. (3) Voice hoarseness: Code(s): R49.0 - Dysphonia Plan: Referred to ENT. (4) Hypovitaminosis D: Code(s): E55.9 - Vitamin D deficiency, unspecified Plan: Continue vitamin-D supplements. Orders: Orders MR head/brain wo con Today E34.8 - Other specified endocrine disorders, G44.52 - New daily persistent headache (NDPH) Lipid Panel Today E78.5 - Hyperlipidemia, unspecified Comprehensive [place]. Panel Fast Today G44.52 - New daily persistent headache (NDPH) Complete Blood Count Auto Diff Today G44.52 - New daily persistent headache (ND PH) [place] upper GI series Today K21.9 - Gastro-esophageal reflux disease without esophagitis Vitamin D 25-OH Total Today E55.9 - Vitamin D deficiency, unspecified Referrals Neurology Referral G44.52 - New daily persistent headache (NDPH) Ear/Nose/Throat Referral R49.0 - Dysphonia Medications: New topiramate 25 mg PO BEDTIME 30 days 30 tabs 2RF Coding Level of Care Code Est Pt Level 4 (10857) Complex EM visit Add On G2211 Diagnoses New persistent daily headache G44.52 Chronic GERD K21.9 Voice hoarseness R49.0 Hypovitaminosis D E55.9 Additional Codes AGAPITO-7 Assessment Billing - AGAPITO-7 Assessment Tool: AGAPITO-7 Assessment 31233 ([id number]) Time Spent (min) 23
== END 2024-01-21 08:52 | disposition home or self-care (01) ==
PROVIDERS: PCP Internal Medicine; Visit Provider Internal Medicine
DX: G44.52 New daily persistent headache (NDPH) (principal); K21.9 Gastro-esophageal reflux disease without esophagitis; R49.0 Dysphonia; E55.9 Vitamin D deficiency, unspecified
CPT/HCPCS: 99214; G2211

== ENCOUNTER 2024-01-21 09:01 | Outpatient (REF) | payer OTHER, SELFPAY ==
[2024-01-21 09:17] LABS: MANUAL DIFF FLAG NO
[2024-01-21 09:50] LABS: Basophils Percent Auto 0.7 % (0-2); Eosinophils Absolute Auto 0.1 X10*3/uL (0.0-0.4); Eosinophils Percent Auto 2.6 % (0-4); Hematocrit 37.7 % (37.0-47.0); Hemoglobin 12.3 g/dl (12.0-16.0); Imm Gran Abs Auto 0.01 X10*3/uL (0.00-0.03); Imm Gran Pct Auto 0.2 % (0.0-0.4); Lymphocytes Absolute Auto 2.5 X10*3/uL (1.2-4.9); Lymphocytes Percent Auto 53.5 % (20-40); Mean Corpuscular HGB Conc 32.6 g/dl (31.0-35.0); Mean Corpuscular Hemoglobin 27.2 pg (27.0-33.0); Mean Corpuscular Volume 83.2 fL (80.0-98.0); Mean Platelet Volume 9.5 fL (9.4-12.3); Monocytes Absolute Auto 0.4 X10*3/uL (0.1-1.2); Monocytes Percent Auto 9.1 % (2-11); Neutrophils Absolute Auto 1.6 x10*3/uL (2.0-8.3); Neutrophils Percent Auto 33.9 % (45-73); Platelet Count 302 X10*3/uL (160-400); Red Blood Count 4.53 X10*6/uL (4.20-5.50); Red Cell Distribution Width 13.1 % (11.0-16.0); White Blood Count 4.6 X10*3/uL (4.8-10.8)
[2024-01-21 10:29] LABS: Alanine Aminotransferase 17 U/L (0-31); Albumin Level 4.2 g/dL (3.5-5.0); Alkaline Phosphatase 55 U/L (39-117); Anion Gap 12 (12-20); Aspartate Amino Transferase 20 U/L (5-31); Bilirubin Total 0.4 mg/dL (0.0-1.0); Blood Urea Nitrogen 20 mg/dL (9-16); Calcium 9.3 mg/dL (8.4-10.2); Carbon Dioxide 25 mmol/L (22-29); Chloride 109 mmol/L (96-108); Cholesterol 215 mg/dL (<200); Estimated Glomerular Filt Rate > 60; Glucose Fasting 103 mg/dL (60-99); HDL Cholesterol 56 mg/dL (>40); LDL Cholesterol Calculated 139 mg/dL (<100); Potassium 3.8 mmol/L (3.3-5.1); Sodium 142 mmol/L (135-145); Total Protein 7.7 g/dL (6.5-8.0); Triglycerides 100 mg/dL (<150)
[2024-01-21 10:45] LABS: Vitamin D 25-OH Total 26.1 ng/mL (>30)
== END 2024-01-21 09:02 | disposition home or self-care (01) ==
LOC: HO.LAB 09:01
PROVIDERS: PCP Internal Medicine; Visit Provider Internal Medicine
DX: E55.9 Vitamin D deficiency, unspecified (principal); E78.5 Hyperlipidemia, unspecified; G44.52 New daily persistent headache (NDPH)
CPT/HCPCS: 36415; 80053; 80061; 82306; 85025

== ENCOUNTER 2024-03-09 08:19 | Outpatient (AMB) | payer OTHER, SELFPAY ==
[2024-03-09 08:21] VITALS: BP 90/64; PULSE 73; O2SAT 97; BMI 30.1
--- NOTE | 2024-03-09 08:21 | MHC.PC.OV ---
Vital Signs 03/09/24 08:21 Height 4 ft 11 in Weight 149 lb 0.4 oz BMI 30.1 BP 90/64 Blood Pressure Location Lt brachial Position Sitting Pulse 73 Pulse Source Pulse Oximeter Pulse Oximetry (%) 97 Oxygen Delivery Method Room Air Intake Visit Reasons: pe Intake Note: Patient is here today for a physical. 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 Accompanied by: Self / Same As Patient Allergies amitriptyline Allergy (Intermediate, Verified 03/09/24 08:31) constipation tree nut [TREE NUT] Allergy (Intermediate, Verified 03/09/24 08:31) THROAT ITCHES omeprazole Adverse Reaction (Intermediate, Verified 03/09/24 08:31) inadequate response pantoprazole Adverse Reaction (Intermediate, Verified 03/09/24 08:31) inadequate response ranitidine Adverse Reaction (Intermediate, Verified 03/09/24 08:31) inadequate response FRUIT, SKINS Allergy (Intermediate, Uncoded 03/09/24 08:31) THROAT ITCHES Medication List - Last Reconciled 03/09/24 by Aisha Olvera MD cholecalciferol (vitamin D3) 50 mcg PO DAILY 90 days famotidine 40 mg PO BID 30 days sumatriptan succinate 25 mg PO Q2-4H PRN 30 days topiramate 25 mg PO BEDTIME 30 days Tobacco use date assessed: 01/21/24 Dental Screening Dental Screen Date: 01/21/24 Did you have a dental visit in the last 12 months?: No Did you have a dental problem in the last 6 months where you did not have access to dental care?: No HPI HPI Comments History of Present Illness Details This is a 53-year-old female with anxiety that comes for her physical exam. Mammogram done 2021 and I will order another mammogram. Pap smear done over 4 years ago and will be refer again to OBGYN. Has not had a colonoscopy and had an abnormal barium swallow test 2022 and was supposed to get endoscopy and colonoscopy. Will be refer again to Gastroenterology. Complains of blurry vision and will be referred to Ophthalmology. Has voice hoarseness for over a year and was referred to ENT but has not received a call yet. Stop menses a year ago. Complains of daily headaches that are severe and is not able to work. The headaches are associated with blurry vision and light sensitivity. 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 Will be referred to Neurology for her headaches. Has anxiety and I will start her on SSRIs. [facility] Medical History (Updated 03/09/24 @ 08:52 by Aisha Olvera MD) Pineal gland cyst Hypovitaminosis D Dyslipidemia Callus of foot Headache GERD (gastroesophageal reflux disease) Surgical History History of esophagogastroduodenoscopy (EGD) History of tubal ligation Family History Father Medical history unknown Mother Diabetes Hypertension Brother Homicide Maternal Grandmother Myocardial infarction Brother Homicide Brother In good health Daughter In good health Daughter In good health Son In good health Son In good health Social History Housing: Apartment Alcohol intake: never Patient Tobacco Use Status: Never used Tobacco e-Cigarette/Vaping Use: Never Used Second Hand Smoke Exposure: No service: No Current occupational status: other Cognitive needs: No Hearing needs: No Vision needs: Yes Questionnaire PHQ-9 Over the last 2 weeks, how often have you been bothered by any of the following problems? 1. Little interest or pleasure in doing things: not at all 2. Feeling down, depressed, or hopeless: not at all 3. Trouble falling or staying asleep, or sleeping too much: not at all 4. Feeling tired or having little energy: not at all 5. Poor appetite or overeating: not at all 6. Feeling bad about yourself - or that you are a failure or have let yourself or your family down: not at all 7. Trouble concentrating on things, such as reading the newspaper or watching television: not at all 8. Moving or speaking so slowly that other people could have noticed. Or the opposite - being so fidgety or restless that you have been moving around a lot more than usual: not at all 9. Thoughts that you would be better off or of hurting yourself in some way: not at all Total score: 0 Depression Screening Interpretation: Negative Depression Screening Done: Yes 86006 - PHQ-9 Billing: Yes Source: Developed by Drs. Benjamín Patel, Lolis Bush, Del Nino and colleagues, with an educational kiki from [employer]. Thrive Questionnaire Date Thrive assessed: 01/21/24 I am a: Patient What is your living situation today?: I have a steady place to live Within the past 12 months, did the food you bought not last and you didn't have the money to get more?: Never true Within the past 12 months, did you worry whether your food would run out before you got money to buy more?: Never true Do you have trouble paying for medicines?: No Do you have trouble getting transportation to medical appointments?: No Do you have trouble paying your heating and electricity bill?: No Do you have trouble taking care of your child, family member or friend?: No Do you have trouble with day-to-day activities such as bathing, preparing meals, shopping, managing finances, etc.?: No Are you currently unemployed and looking for a job?: No Are you interested in more education?: No Please select the resources that you would like help with: None THRIVE Score: 0 AUDIT C Alcohol Use Questionnaire (AUDIT-C) 1. How often do you have a drink containing alcohol?: Never Total Score: 0 Score Reviewed/Action Taken: No AGAPITO-7 AMB Questionnaire AGAPITO-7 Date AGAPITO - 7 assessed: 01/21/24 Feeling nervous, anxious, or on edge: 2 = More than half the days Not being able to stop or control worryin = Not at all Worrying too much about different things: 2 = More than half the days Trouble relaxin = Several days Being so restless that it is hard to sit still: 0 = Not at all Becoming easily annoyed or irritable: 0 = Not at all Feeling afraid as if something awful might happen: 1 = Several days Total AGAPITO-7 score (0-4 normal; 5-9 mild; 10-14 moderate; 15-21 severe): 6 Source: Developed by Drs. Benjamín Patel, Del Alan and colleagues, with an educational kiki from [employer]. AGAPITO-7 Assessment Billing AGAPITO-7 Assessment Tool: AGAPITO-7 Assessment 67426 Review of Systems Const All systems reviewed & are unremarkable except as noted in HPI and below Reports headache(s) Eyes Reports blurry vision ENT Reports headache(s) Card Denies chest pain at rest, Denies chest pain with activity, Denies edema, Denies irregular heart rhythm, Denies claudication, Denies dyspnea, Denies dyspnea on exertion, Denies orthopnea, Denies paroxysmal nocturnal dyspnea and Denies slow heart rate Resp Denies cough, Denies dyspnea and Denies dyspnea on exertion GI Denies abdominal pain, Reports bloating, Denies change in bowel habits, Denies excessive flatus, Denies nausea and Denies vomiting Denies urinary incontinence, Denies urinary hesitancy and Denies urinary urgency Musc Denies abnormal gait, Denies atrophy, Denies deformity and Denies limited range of motion Skin/Breast Denies bleeding lesions, Denies changing lesions and Denies rash Neuro Denies abnormal gait, Reports headache(s) and Denies lack of coordination Physical exam (Primary Care) Vital Signs: Last Vital Signs Pulse 73 03/09/24 08:21 BP 90/64 03/09/24 08:21 Pulse Ox 97 03/09/24 08:21 Oxygen Delivery Method Room Air 03/09/24 08:21 BMI result Body Mass Index 30.1 BMI Assessment/Plan discussion: High BMI High, discussed plan: lifestyle, weight reduction, dietary and physical activity Tobacco/Smoking Status: Tobacco use Status Tobacco use date assessed 01/21/24 03/09/24 08:22 Patient Tobacco Use Status Never used Tobacco 03/09/24 08:22 e-Cigarette/Vaping Use Never Used 03/09/24 08:22 PHQ-9: PHQ-9 Score PHQ-9: Total score 0 03/09/24 08:26 Depression Screening Interpretation: Negative Thrive Assessment: Date of Thrive Assessment Date Thrive assessed 01/21/24 03/09/24 08:22 Const Orientation/consciousness: patient oriented x3 HENMT Head: Yes normal to inspection, Yes normocephalic and Yes atraumatic Ears: external ears normal Eyes General: appearance normal, both eyes and all related structures Eyelids: Yes eyelids normal Conjunctivae: conjunctivae normal Neck Neck: Yes normal visual inspection and Yes supple Resp Effort & Inspection: normal respiratory effort Auscultation: clear to auscultation bilaterally Cardio Jugular venous distension: no JVD Rate: regular rate Rhythm: regular rhythm Heart sounds: S1 normal heart sound present and S2 normal heart sound present GI Inspection: Yes normal to inspection Palpation (GI): Soft to palpation and nontender Auscultation: normal bowel sounds Skin General skin exam: no rashes or lesions noted Neuro General: patient oriented x3 and no focal motor deficits Extrem General: Yes full ROM Psych Appearance: grossly normal Assessment and Plan Assessment & Plan (1) Physical exam: Code(s): Z00.00 - Encounter for general adult medical examination without abnormal findings Plan: Repeat in a year. (2) New persistent daily headache: Code(s): G44.52 - New daily persistent headache (NDPH) Plan: MRI of the head ordered. Referred to neurology. (3) Voice hoarseness: Code(s): R49.0 - Dysphonia Plan: Referred to ENT. (4) Anxiety: Code(s): F41.9 - Anxiety disorder, unspecified Plan: Start SSRIs. (5) Blurry vision, bilateral: Code(s): H53.8 - Other visual disturbances Plan: Referred to Ophthalmology. (6) Abnormal barium swallow: Code(s): R93.3 - Abnormal findings on diagnostic imaging of other parts of digestive tract Plan: Referred to Gastroenterology. Orders: Orders MR head/brain wo con Today E34.8 - Other specified endocrine disorders, G44.52 - New daily persistent headache (NDPH) MM screening mammo BI Today Z12.31 - Encounter for screening mammogram for malignant neoplasm of breast Referrals INSPECTOR TYPE Referral Z12.4 - Encounter for screening for malignant neoplasm of cervix Neurology Referral G44.52 - New daily persistent headache (NDPH) Ophthalmology Referral H53.8 - Other visual disturbances Gastroenterology Referral R93.3 - Abnormal findings on diagnostic imaging of other parts of digestive tract, Z12.11 - Encounter for screening for malignant neoplasm of colon Medications: New sertraline 25 mg PO DAILY 30 days 30 tabs 0RF F41.9 - Anxiety disorder, unspecified Refilled sumatriptan succinate do not exceed 8 doses per 24 hrs 25 mg PO Q2-4H 30 days PRN 9 tabs 3RF migraine headache topiramate 25 mg PO BEDTIME 30 days 30 tabs 2RF famotidine 40 mg PO BID 30 days 60 tabs 1RF cholecalciferol (vitamin D3) 50 mcg PO DAILY 90 days 90 caps 1RF Coding Level of Care Code Est Pt Level 4 (93370) Est Pt Prev Care 40-64y(91726) Diagnoses Physical exam Z00.00 New persistent daily headache G44.52 Voice hoarseness R49.0 Anxiety F41.9 Blurry vision, bilateral H53.8 Abnormal barium swallow R93.3 Additional Codes AGAPITO-7 Assessment Billing - AGAPITO-7 Assessment Tool: AGAPITO-7 Assessment 05682 ([id number]) Time Spent (min) 40
== END 2024-03-09 08:56 | disposition home or self-care (01) ==
PROVIDERS: PCP Internal Medicine; Visit Provider Internal Medicine
DX: Z00.00 Encounter for general adult medical examination without abnormal findings (principal); G44.52 New daily persistent headache (NDPH); R49.0 Dysphonia; F41.9 Anxiety disorder, unspecified; H53.8 Other visual disturbances; R93.3 Abnormal findings on diagnostic imaging of other parts of digestive tract
CPT/HCPCS: 99214; 99396

== ENCOUNTER → 2024-06-11 08:53 | Outpatient (BNV) | payer OTHER, SELFPAY | PROVIDERS: PCP Internal Medicine; Visit Provider Radiology Diagnostic Radiology | DX: G44.52 New daily persistent headache (NDPH) (principal); E34.8 Other specified endocrine disorders | CPT/HCPCS: 70553 ==

== ENCOUNTER 2024-06-11 08:57 | Outpatient (REF) | payer OTHER, SELFPAY ==
--- NOTE | ~2024-06-11 | MR_ITS ---
EXAMINATION: MR BRAIN WITHOUT AND WITH CONTRAST CLINICAL INFORMATION: Persistent headache. Pineal gland cyst. COMPARISON: MRI dated January 01, 2023 TECHNIQUE: Multiplanar, multisequence MRI of the brain was obtained before and after the intravenous administration of 6.5 mL gadolinium (Gadavist) without reported immediate complications.. FINDINGS: No restricted diffusion. No acute intracranial hemorrhage, mass effect, midline shift, hydrocephalus or herniation. Souza-white matter differentiation is normal. No abnormal enhancement within the intra-axial or the extra-axial compartment of the cranium. Posterior cranial fossa contents demonstrated an 8 mm nonenhancing isointense FLAIR lesion in the pineal gland. Flow-void signal within the main cerebral vessels is normal. Sellar/suprasellar region is normal. Craniocervical junction is intact and normal. There is a 2 cm nonenhancing intrinsic hyperintense T1 lesion in the left maxillary sinus. MR/MR head/brain wo/w con IMPRESSION: No acute stroke/ischemia or acute brain abnormality. 8 mm nonenhancing complex cystic lesion, pineal gland. Retention cysts versus polyp, left maxillary sinus. Recommend direct inspection. Electronically signed by: Xander Herrera MD 06/11/2024 03:49 PM EST
[2024-06-11] MEDS: gadobutroL 7.5 ML VIAL IVPUSH (09:59)
== END 2024-06-11 08:58 | disposition home or self-care (01) ==
LOC: HO.MRI 08:57
PROVIDERS: PCP Internal Medicine; Visit Provider Internal Medicine
DX: G44.52 New daily persistent headache (NDPH) (principal); E34.8 Other specified endocrine disorders
CPT/HCPCS: 70553; A9585

== ENCOUNTER 2024-09-09 12:29 | Outpatient (REF) | payer OTHER, SELFPAY ==
--- OUTSIDE RECORDS SUMMARY | 2024-09-09 13:52 | XMS_ITS | Clinical Summary ---
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 0 09/22/2014 Active aspirin 81 mg EC tabletIndication s:Preventive measure Take 1 Tab by mouth once daily. 30 Tab 3 11/25/2014 Active busPIRone (BUSPAR) 5 mg tabletIndication s:Depression with anxiety Take 1 Tab by mouth 3 (three) times daily. 90 Tab 3 11/25/2014 Active hydrOXYzine (ATARAX) 25 mg tabletIndication s:Depression with anxiety Take 1 Tab by mouth 3 (three) times daily as needed for anxiety. 90 Tab 3 11/25/2014 Active Active Problems Problem Noted Date Diagnosed Date Depression with anxiety 11/25/2014 Overview (11/25/2014): [facility] Hx of tubal ligation 11/25/2014 Overview (11/25/2014): [facility] in 2002 Family History Medical History Relation Name Comments Depression Mother Hypertension Mother Relation Name Status Comments Mother Alive Social History Tobacco Use Types Packs/Day Years Used Date Smoking Tobacco: Never Smokeless Tobacco: Never Alcohol Use Standard Drinks/Week Comments No 0 (1 standard drink = 0.6 oz pur e alcohol) Social Connections Answer Date Recorded Social Connections and Isolation 0 03/29/2019 Financial Resource Strain Answer Date R ecorded Financial Resource Strain 0 2018 Stress Answer Date Recorded Stress 0 03/29/2019 Physical Activity Answer Date Recorded Physical Activity 0 03/29/2019 Food Insecurity Answer Date Recorded Food 0 03/29/2019 Transportation Needs Answer Date Record ed Transportation 0 03/29/2019 Housing Stability Answer Date Recorded Housing 0 03/29/2019 Safety and Environment Answer Date Eddie rded Safety 0 03/29/2019 Utilities Answer Date Recorded Utilities 0 03/29/2019 Employment Answer Date Recorded Employment 0 03/29/2019 Comments No Sex and Gender Information Value Date Recorded Sex Assigned at Not on file Legal Sex Female 10:46 AM PDT Gender Identity Not on file Sexual Orientation Not on file Last Filed Vital Signs Vital Sign Reading Time Taken Comments Blood Pressure 100/74 11/25/2014 9:36 AM EDT Pulse 70 11/25/2014 9:36 AM EDT Temperature 37.1 ??C (98.7 ??F) 11/25/2014 9:36 AM ED T Respiratory Rate 16 11/25/2014 9:36 AM EDT Oxygen Saturation - - Inhaled Oxygen Concentration - - Weight 60.8 kg (134 lb) 11/25/2014 9:36 AM EDT Height 152.4 cm (5') 11/25/2014 9:36 AM EDT Body Mass Index 26.17 11/25/2014 9:36 AM EDT Plan of Treatment Not on file Insurance [facility] 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
[2024-09-09 13:54] LABS: Alanine Aminotransferase 24 U/L (0-31); Albumin Level 4.4 g/dL (3.5-5.0); Alkaline Phosphatase 60 U/L (39-117); Anion Gap 9 (12-20); Aspartate Amino Transferase 29 U/L (5-31); Bilirubin Total 0.7 mg/dL (0.0-1.0); Blood Urea Nitrogen 12 mg/dL (9-16); Calcium 9.2 mg/dL (8.4-10.2); Carbon Dioxide 25 mmol/L (22-29); Chloride 109 mmol/L (96-108); Cholesterol 220 mg/dL (<200); Estimated Glomerular Filt Rate > 60; Glucose Fasting 90 mg/dL (60-99); HDL Cholesterol 60 mg/dL (>40); LDL Cholesterol Calculated 139 mg/dL (<100); Sodium 139 mmol/L (135-145); Total Protein 8.3 g/dL (6.5-8.0); Triglycerides 106 mg/dL (<150)
[2024-09-09 14:16] LABS: Vitamin D 25-OH Total 29.3 ng/mL (>30)
== END 2024-09-09 12:30 | disposition home or self-care (01) ==
LOC: HO.LAB 12:29
PROVIDERS: PCP Internal Medicine; Visit Provider Internal Medicine
DX: G44.52 New daily persistent headache (NDPH) (principal); E78.5 Hyperlipidemia, unspecified; E55.9 Vitamin D deficiency, unspecified
CPT/HCPCS: 36415; 80053; 80061; 82306

== ENCOUNTER 2024-10-24 14:38 | Emergency (ER) | payer OTHER, SELFPAY ==
--- NOTE | ~2024-10-24 | CT_ITS ---
CLINICAL HISTORY: worsening USE, known 8mm cyst CT head without contrast Comparison: MR/IL/SR - MR HEAD/BRAIN WO/W CON - 06/11/24 09:12 EST Findings: No intra-axial mass, midline shift, hydrocephalus, or acute hemorrhage. No significant atrophy-like change or white matter disease. 8 mm partially calcified pineal gland cyst. Mucous retention cyst versus polyp in the left maxillary, similar to prior. The orbits are unremarkable. No skull fracture. IMPRESSION: 1. No acute intracranial findings. 2. 8 mm partially calcified pineal gland cyst. This document has been electronically signed by: Derrick Booth MD on 10/24/2024 22:25:45
[2024-10-24 14:50] VITALS: BP 112/58; PULSE 93; RESP 20; TEMP 36.8; O2SAT 96; BMI 26.0
--- NOTE | 2024-10-24 14:51 | ED.HA ---
HPI - Headache General Chief Complaint: Headache Stated Complaint: headache, painful lump in armpit rad to breast Time Seen by Provider: 10/24/24 20:13 Source: patient Mode of arrival: ambulatory Limitations: no limitations History of Present Illness ED Provider: Dr. Cande Bowen HPI Narrative: patient comes to the emergency room complaining of headache. Patient states that she has had headaches for several months even years. 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 Per patient, she has been referred to Neurology in the past. Patient states that previously she had headaches, but this time she is getting headaches almost every day. Patient states that in the morning she wakes up with blurry vision. At this time, her vision is within normal limits. Patient has been diagnosed with migraines, states that she takes sumatriptan 25 mg every time that she has a headache. Patient states that the sumatriptan does help her headaches but they keep coming back. Also, patient comes in complaining of pain in her right axillary area. Patient states that 6 months ago she spoke with her primary care physician regarding the lump. Patient states that it was painless. However, over last few days it is becoming more painful. Patient denies fever chills, states that she had a mammogram done about a year ago. Related Data Previous Rx's ?Medication ?Instructions ?Recorded cholecalciferol (vitamin D3) 50 50 mcg PO DAILY 90 days #90 caps 03/09/24 mcg (2,000 unit) capsule famotidine 40 mg tablet 40 mg PO BID 30 days #60 tabs 03/09/24 topiramate 25 mg tablet 25 mg PO BEDTIME 30 days #30 tabs 03/09/24 sertraline 25 mg tablet 25 mg PO DAILY 30 days #30 tabs 08/05/24 sumatriptan succinate 25 mg tablet 25 mg PO Q2-4H PRN migraine 09/03/24 headache 30 days #9 tabs sumatriptan succinate 50 mg tablet 50 mg PO Q2-4H PRN migraine 10/25/24 headache #9 tabs Allergies Allergy/AdvReac Type Severity Reaction Status Date / Time amitriptyline Allergy Intermediate constipatio Verified 10/24/24 14:55 n tree nut [TREE NUT] Allergy Intermediate THROAT Verified 10/24/24 14:55 ITCHES omeprazole AdvReac Intermediate inadequate Verified 10/24/24 14:55 response pantoprazole AdvReac Intermediate inadequate Verified 10/24/24 14:55 response ranitidine AdvReac Intermediate inadequate Verified 10/24/24 14:55 response FRUIT, SKINS Allergy Intermediate THROAT Uncoded 10/24/24 14:55 ITCHES Review of Systems Review of Systems: Constitutional : No Weight loss, No Fever, No Chills, No Night Sweats, No Fatigue, No Malaise ENT/Mouth : No Hearing loss, No Ear Pain, No Nasal Congestion, No Sinus Pain, No Hoarseness, No sore throat, No Rhinorrhea, No Swallowing Difficulty Eyes: No Eye Pain, No Swelling, No Redness, No Foreign Body, No Discharge, No Vision Changes Cardiovascular : No Chest Pain, No SOB, No Dyspnea on Exertion, No Orthopnea, No Edema, No Palpitations Respiratory : No Cough, No Sputum, No Wheezing, No Smoke Exposure, No Dyspnea Gastrointestinal : No Nausea, No Vomiting, No Diarrhea, No Constipation, No abdominal Pain, No Hematochezia, No Melena Genitourinary : no irregular bleeding, No Dysuria, No Urinary Frequency, No Hematuria, No Urinary Incontinence, No Urgency, No Flank Pain, No Urinary Flow Changes, No Hesitancy Musculoskeletal : No joint pain, No Myalgias, No Joint Swelling Skin : No Skin Lesions, No rash Neuro : No Weakness, No Numbness, No Paresthesias, No Loss of Consciousness, No Dizziness, Complaining of frequent Headaches Psych : No Anxiety/Panic, No Depression, No SI/HI/AH/VH, No Social Issues, Heme/Lymph: No Bruising, No Bleeding, complaining of a lump under her left axilla Endocrine : No Polyuria, No Polydipsia, No Temperature Intolerance PMFSH Past Medical History Medical History Pineal gland cyst Hypovitaminosis D Dyslipidemia Callus of foot Headache GERD (gastroesophageal reflux disease) Surgical History History of esophagogastroduodenoscopy (EGD) History of tubal ligation Family History Family History Father Medical history unknown Mother Diabetes Hypertension Brother Homicide Maternal Grandmother Myocardial infarction Brother Homicide Brother In good health Daughter In good health Daughter In good health Son In good health Son In good health Social History Social History Housing: Apartment Alcohol intake: never Patient Tobacco Use Status: Never used Tobacco Smoked in Last 30 Days: No e-Cigarette/Vaping Use: Never Used Second Hand Smoke Exposure: No Use of substances other than those prescribed or required for medical reasons: No Advance Directives: No Advance Directives Information Provided: No service: No Current occupational status: other Cognitive needs: No Hearing needs: No Vision needs: Yes Physical Exam Vital Signs: Vital Signs: Last Vital Signs Temp 97.5 F 10/24/24 19:29 Pulse 85 10/24/24 20:27 Resp 16 10/24/24 20:27 BP 111/79 10/24/24 20:27 Pulse Ox 98 10/24/24 20:27 O2 Del Method Room Air 10/24/24 20:27 BMI result Body Mass Index 26.0 Const: Other: Appearance: Alert. Oriented X3. No acute distress. Well-appearing, talking on the phone Eyes: Pupils equal, round and reactive to light. no photophobia ENT: Pharynx normal. Neck: Normal inspection. Neck supple. No lymph nodes noted. No crepitus CVS: Normal heart rate and rhythm. Pulses normal. Normal S1 and S2 Respiratory: No respiratory distress. Breath sounds normal. No Wheezing. No rales Abdomen: Soft and nontender. No rigidity. No distention. Skin: Skin warm and dry. Normal skin color. Normal skin turgor. Extremities: No lower extremity edema. No Lacerations. No Rash. I did not feel any lumps under the patient's axilla on the left. However, patient states that palpation caused her to have pain. no erythema, no abscess, no drainage Neuro: Oriented X 3. No motor deficit. No sensory deficit. Moving all extremities. No slurred speech. CN 2 through 12 grossly intact Psych: calm, cooperative, normal affect Course Course Course Narrative: This is an RME performed by Luis Fernando Magallanes CNP: Additional HPI, ROS, PE not included below will be deferred to primary provider. patient is a 51-year-old female who presents emergency department for evaluation. She has been having increased frequency of diffuse headaches frontal and occipital pressure over the past 6 months. Reports that her headaches are daily. has associated blurred vision and nausea. Today the headache was worse in intensity/pain. She has had an MRI June 2024 revealing a cyst within the brain. MRI revealed 8 mm nonenhancing complex cystic lesion of the pineal gland Additionally, she is experiencing a palpable lump in the left axillary area that is now becoming painful Medications Administered Discontinued Medications Generic Name Dose Route Start Last Admin Trade Name Freq PRN Reason Stop Dose Admin Ketorolac Tromethamine 10 mg 10/24/24 22:45 10/24/24 22:52 Ketorolac Tromethamine 10 Mg Tablet PO 10/24/24 22:46 10 mg ONCE ONE Administration Metoclopramide HCl 10 mg 10/24/24 22:45 10/24/24 22:52 Metoclopramide Hcl 10 Mg Tablet PO 10/24/24 22:46 10 mg ONCE ONE Administration Medical Decision Making Medical Decision Making [facility] Narrative: patient well-appearing, to the head of the head does not show any acute abnormality, chronic calcified pineal gland cyst patient received IM Toradol and p.o. Reglan, patient declined IV medication. Patient feeling better. Discussed with the patient that we will increase her dose of sumatriptan from 25 mg prn to 50 mg. Patient agrees with plan I did not feel any palpable lumps in the patient's axillary area. Patient has normal range of motion. I discussed with the patient that she may follow-up with the primary care physician. Patient may need outpatient ultrasound, repeated mammogram Differential Diagnosis Differential Diagnoses: The differential diagnosis associated with the presentation includes ( migraine headache, brain mass, tension headache) Admission/Observation Consideration of admission/observation: Escalation of care including admission/observation considered ( given patient's past medical history and presentation, observation was considered) Lab Data [facility] Lab Attestation statement: I reviewed the patient's lab results. 10/24/24 15:06 10/24/24 15:06 Labs: Lab Results 10/24/24 Range/Units 15:06 WBC 4.0 L (4.8-10.8) X10*3/uL RBC 4.60 (4.20-5.50) X10*6/uL Hgb 12.6 (12.0-16.0) g/dl Hct 37.4 (37.0-47.0) % MCV 81.3 (80.0-98.0) fL MCH 27.4 (27.0-33.0) pg MCHC 33.7 (31.0-35.0) g/dl RDW 13.2 (11.0-16.0) % Plt Count 301 (160-400) X10*3/uL MPV 9.2 L (9.4-12.3) fL Immature Gran % (Auto) 0.0 (0.0-0.4) % Neut % (Auto) 32.0 L (45-73) % Lymph % (Auto) 56.4 H (20-40) % [place] % (Auto) 8.7 (2-11) % Eos % (Auto) 2.2 (0-4) % Baso % (Auto) 0.7 (0-2) % Lymph # (Auto) 2.3 (1.2-4.9) X10*3/uL [place] # (Auto) 0.4 (0.1-1.2) X10*3/uL Eos # (Auto) 0.1 (0.0-0.4) X10*3/uL Baso # (Auto) 0.0 (0.0-0.2) X10*3/uL Abs Immat Gran (auto) 0.00 (0.00-0.03) X10*3/uL Absolute Neuts (auto) 1.3 L (2.0-8.3) x10*3/uL Absolute Nucleated RBC 0.000 (0.0-0.012) X10*3/uL Nucleated RBC % (auto) 0.0 (0.0-0.2) /100WBC Sodium 145 (135-145) mmol/L Potassium 4.0 (3.3-5.1) mmol/L Chloride 111 H (96-108) mmol/L Carbon Dioxide 26 (22-29) mmol/L Anion Gap 12 (12-20) BUN 16 (9-16) mg/dL Creatinine 0.80 (0.5-1.4) mg/dL Estim Creat Clear Calc 77.4 Estimated GFR > 60 Random Glucose 92 (60-115) mg/dL Calcium 9.7 (8.4-10.2) mg/dL Magnesium 2.0 (1.6-2.6) mg/dL Total Bilirubin 0.5 (0.0-1.0) mg/dL AST 25 (5-31) U/L ALT 28 (0-31) U/L Alkaline Phosphatase 64 (39-117) U/L Total Protein 8.0 (6.5-8.0) g/dL Albumin 4.1 (3.5-5.0) g/dL Influenza Type A (PCR) NEGATIVE (Negative) Influenza Type B (PCR) NEGATIVE (Negative) RSV RNA Qual (PCR) NEGATIVE (Negative) SARS-CoV-2 RNA (RT-PCR) NEGATIVE (Negative) Independent Interpretation I performed an independent interpretation of an: CT Scan Interpretation: No intra-axial mass, midline shift, hydrocephalus, or acute hemorrhage. No significant atrophy-like change or white matter disease. 8 mm partially calcified pineal gland cyst. Mucous retention cyst versus polyp in the left maxillary, similar to prior. The orbits are unremarkable. No skull fracture. IMPRESSION: 1. No acute intracranial findings. 2. 8 mm partially calcified pineal gland cyst. Critical Care Time Critical Care Time Critical Care Time: Yes Total Critical Care Time: 35 Attestation: I have personally provided critical care time. Time includes review of lab data, radiology results, discussion with consultants, and monitoring for potential decompensation. Intervention performed as documented. Discharge Plan Discharge Clinical Impression: Headache, migraine Patient Disposition: Home, Self-Care Instructions: Migraine Headache (ED) Additional Instructions: Please follow-up with your primary care physician tomorrow. please discussed with your primary care physician the pain your having an your left armpit. If you have any worsening or new symptoms, please return to the emergency room or call 911 Prescriptions: New sumatriptan succinate 50 mg tablet 50 mg PO Q2-4H PRN (Reason: migraine headache) Qty: 9 0RF Rx Instructions: do not exceed 4 doses per 24 hrs No Action sertraline 25 mg tablet 25 mg PO DAILY 30 Days Qty: 30 0RF sumatriptan succinate 25 mg tablet 25 mg PO Q2-4H PRN (Reason: migraine headache) 30 Days Qty: 9 3RF Rx Instructions: do not exceed 8 doses per 24 hrs topiramate 25 mg tablet 25 mg PO BEDTIME 30 Days Qty: 30 2RF famotidine 40 mg tablet 40 mg PO BID 30 Days Qty: 60 1RF cholecalciferol (vitamin D3) 50 mcg (2,000 unit) capsule 50 mcg PO DAILY 90 Days Qty: 90 1RF Print Language: Arabic
[2024-10-24 15:11] LABS: MANUAL DIFF FLAG NO
[2024-10-24 15:13] LABS: Basophils Percent Auto 0.7 % (0-2); Eosinophils Absolute Auto 0.1 X10*3/uL (0.0-0.4); Eosinophils Percent Auto 2.2 % (0-4); Hematocrit 37.4 % (37.0-47.0); Hemoglobin 12.6 g/dl (12.0-16.0); Lymphocytes Absolute Auto 2.3 X10*3/uL (1.2-4.9); Lymphocytes Percent Auto 56.4 % (20-40); Mean Corpuscular HGB Conc 33.7 g/dl (31.0-35.0); Mean Corpuscular Hemoglobin 27.4 pg (27.0-33.0); Mean Corpuscular Volume 81.3 fL (80.0-98.0); Mean Platelet Volume 9.2 fL (9.4-12.3); Monocytes Absolute Auto 0.4 X10*3/uL (0.1-1.2); Monocytes Percent Auto 8.7 % (2-11); Neutrophils Absolute Auto 1.3 x10*3/uL (2.0-8.3); Platelet Count 301 X10*3/uL (160-400); Red Cell Distribution Width 13.2 % (11.0-16.0)
[2024-10-24 15:46] LABS: Alanine Aminotransferase 28 U/L (0-31); Albumin Level 4.1 g/dL (3.5-5.0); Anion Gap 12 (12-20); Aspartate Amino Transferase 25 U/L (5-31); Bilirubin Total 0.5 mg/dL (0.0-1.0); Blood Urea Nitrogen 16 mg/dL (9-16); Calcium 9.7 mg/dL (8.4-10.2); Carbon Dioxide 26 mmol/L (22-29); Chloride 111 mmol/L (96-108); Creatinine Clr Calc Pharmacy 77.4; Estimated Glomerular Filt Rate > 60; Glucose Random 92 mg/dL (60-115); Sodium 145 mmol/L (135-145)
[2024-10-24 15:50] LABS: Influenza A PCR NEGATIVE (Negative); Influenza B PCR NEGATIVE (Negative); Resp Syncy Virus RNA Qual PCR NEGATIVE (Negative); SARS COV2 PCR INHOUSE NEGATIVE (Negative)
[2024-10-24 16:26] LABS: Alkaline Phosphatase 64 U/L (39-117)
[2024-10-24 19:29] VITALS: BP 114/77; PULSE 90; RESP 18; TEMP 36.4; O2SAT 95
[2024-10-24 20:27] VITALS: BP 111/79; PULSE 85; RESP 16; O2SAT 98
[2024-10-24] MEDS: Ketorolac Tromethamine 10 MG TABLET PO (22:52)
[2024-10-24] MEDS: Metoclopramide HCl 10 MG TABLET PO (22:52)
[2024-10-25 00:41] VITALS: BP 108/65; PULSE 66; RESP 16; TEMP 36.5; O2SAT 97
[2024-10-25 00:47] VITALS: BP 108/65; PULSE 66; RESP 16; TEMP 36.5; O2SAT 97
== END 2024-10-25 00:47 | disposition home or self-care (01) ==
PROVIDERS: Nurse Practitioner Family; Emergency Provider Emergency Medicine; PCP Internal Medicine
DX: G43.909 Migraine, unspecified, not intractable, without status migrainosus (principal); Z03.818 Encounter for observation for suspected exposure to other biological agents ruled out
CPT/HCPCS: 0241U; 70450; 80053; 83735; 85025; 99284

== ENCOUNTER → 2024-10-24 20:43 | Outpatient (BNV) | payer OTHER, SELFPAY | PROVIDERS: Emergency Provider Emergency Medicine; PCP Internal Medicine; Visit Provider Radiology Diagnostic Radiology | DX: E34.8 Other specified endocrine disorders (principal) | CPT/HCPCS: 70450 ==

== ENCOUNTER 2024-11-12 14:54 | Outpatient (REF) | payer OTHER, SELFPAY ==
--- OUTSIDE RECORDS SUMMARY | 2024-11-12 17:31 | XMS_ITS | Clinical Summary ---
Author Organization [facility] Address [address] [place] [address] Care Team Providers Care Return Checker Name Role Phone IeshawesleyOsei NP Primary Care Provider [phone] Source Comments PLEASE NOTE, if this patient [...] of Treatment Not on file [facility] Care Teams Return Checker Relationship Specialty Start Date End Date Osei Rascon NP [address] [place] [address] PCP - General 06/12/18
== END 2024-11-12 14:55 | disposition home or self-care (01) ==
LOC: HO.MAMMO 14:54
PROVIDERS: PCP Internal Medicine; Visit Provider Internal Medicine
DX: Z13.89 Encounter for screening for other disorder (principal)

== ENCOUNTER 2024-11-17 08:01 | Outpatient (AMB) | payer OTHER, SELFPAY ==
--- OUTSIDE RECORDS SUMMARY | 2024-11-17 08:05 | XMS_ITS | Clinical Summary ---
Author Organization [facility] Address [address] [place] [address] Care Team Providers Care Production Underwriter Name Role Phone IeshawesleyOsei NP Primary Care Provider [phone] Source Comments PLEASE NOTE, if this patient [...] of Treatment Not on file [facility] Care Teams Production Underwriter Relationship Specialty Start Date End Date Osei Rascon NP [address] [place] [id number] PCP - General 06/12/18
[2024-11-17 08:21] VITALS: BP 106/70; BMI 26.1
--- NOTE | 2024-11-17 08:21 | MHC.PC.OV ---
Vital Signs 11/17/24 08:21 Height 5 ft 4 in Weight 152 lb BMI 26.1 BP 106/70 Blood Pressure Location Lt brachial Position Sitting Intake Visit Reasons: Lump on left breast, 3 o'clock Film Color Tester Required: Yes Film Color Tester Language: Barn Hand Name: Aisha Olvera MD Information Interpreted: non-clinical & clinical Accompanied by: Self / Same As Patient Allergies amitriptyline Allergy (Intermediate, Verified 11/17/24 08:37) constipation tree nut [TREE NUT] Allergy (Intermediate, Verified 11/17/24 08:37) THROAT ITCHES omeprazole Adverse Reaction (Intermediate, Verified 11/17/24 08:37) inadequate response pantoprazole Adverse Reaction (Intermediate, Verified 11/17/24 08:37) inadequate response ranitidine Adverse Reaction (Intermediate, Verified 11/17/24 08:37) inadequate response FRUIT, SKINS Allergy (Intermediate, Uncoded 11/17/24 08:37) THROAT ITCHES Medication List - Last Reconciled 11/17/24 by Aisha Olvera MD cholecalciferol (vitamin D3) 50 mcg PO DAILY 90 days famotidine 40 mg PO BID 30 days sertraline 25 mg PO DAILY 30 days sumatriptan succinate 50 mg PO Q2-4H PRN sumatriptan succinate 25 mg PO Q2-4H PRN 30 days topiramate 25 mg PO BEDTIME 30 days Tobacco use date assessed: 11/17/24 Dental Screening Dental Screen Date: 11/17/24 Did you have a dental visit in the last 12 months?: No Did you have a dental problem in the last 6 months where you did not have access to dental care?: No Was dental information given to patient?: Patient has dentist HPI HPI Comments History of Present Illness Details The patient is a 54-year-old female presenting with a breast mass and migraines. She noted that the left breast mass has been present for about a year with a gradual increase in size. There are no changes reported in skin texture, color, or weight. Significantly, there is no family history of breast cancer reported, though a relative has had non-malignant breast calcifications. The patient experiences frequent migraines, nearly daily, and has been prescribed sumatriptan and Topamax. She has a history of elevated cholesterol but has a low Havre cardiovascular risk assessment. 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 She is also on medication for anxiety and depression. [facility] Medical History (Updated 11/17/24 @ 09:00 by Aisha Olvera MD) Pineal gland cyst Hypovitaminosis D Dyslipidemia Callus of foot Headache GERD (gastroesophageal reflux disease) Surgical History History of esophagogastroduodenoscopy (EGD) History of tubal ligation Family History Father Medical history unknown Mother Diabetes Hypertension Brother Homicide Maternal Grandmother Myocardial infarction Brother Homicide Brother In good health Daughter In good health Daughter In good health Son In good health Son In good health Social History Housing: Apartment Alcohol intake: never Patient Tobacco Use Status: Never used Tobacco e-Cigarette/Vaping Use: Never Used Second Hand Smoke Exposure: No service: No Current occupational status: other Cognitive needs: No Hearing needs: No Vision needs: Yes Questionnaire PHQ-9 Over the last 2 weeks, how often have you been bothered by any of the following problems? 1. Little interest or pleasure in doing things: not at all 2. Feeling down, depressed, or hopeless: several days 3. Trouble falling or staying asleep, or sleeping too much: not at all 4. Feeling tired or having little energy: not at all 5. Poor appetite or overeating: not at all 6. Feeling bad about yourself - or that you are a failure or have let yourself or your family down: not at all 7. Trouble concentrating on things, such as reading the newspaper or watching television: not at all 8. Moving or speaking so slowly that other people could have noticed. Or the opposite - being so fidgety or restless that you have been moving around a lot more than usual: not at all 9. Thoughts that you would be better off or of hurting yourself in some way: not at all Total score: 1 Depression Screening Interpretation: Negative Depression Screening Done: Yes 65491 - PHQ-9 Billing: Yes Source: Developed by Drs. Benjamín Patel, Lolis Bush, Del Nino and colleagues, with an educational kiki from [email or web address]. Thrive Questionnaire Date Thrive assessed: 11/17/24 I am a: Patient What is your living situation today?: I have a steady place to live Within the past 12 months, did the food you bought not last and you didn't have the money to get more?: Never true Within the past 12 months, did you worry whether your food would run out before you got money to buy more?: Never true Do you have trouble paying for medicines?: No Do you have trouble getting transportation to medical appointments?: No Do you have trouble paying your heating and electricity bill?: No Do you have trouble taking care of your child, family member or friend?: No Do you have trouble with day-to-day activities such as bathing, preparing meals, shopping, managing finances, etc.?: No Are you currently unemployed and looking for a job?: No Are you interested in more education?: No Please select the resources that you would like help with: None Currently or been in a relationship where the following occur: No concerns reported THRIVE Score: 0 AUDIT C Alcohol Use Questionnaire (AUDIT-C) 1. How often do you have a drink containing alcohol?: Never Total Score: 0 Score Reviewed/Action Taken: No AGAPITO-7 AMB Questionnaire AGAPITO-7 Date AGAPITO - 7 assessed: 11/17/24 Feeling nervous, anxious, or on edge: 1 = Several days Not being able to stop or control worryin = Not at all Worrying too much about different things: 1 = Several days Trouble relaxin = Not at all Being so restless that it is hard to sit still: 0 = Not at all Becoming easily annoyed or irritable: 0 = Not at all Feeling afraid as if something awful might happen: 0 = Not at all Total AGAPITO-7 score (0-4 normal; 5-9 mild; 10-14 moderate; 15-21 severe): 2 Source: Developed by Drs. Benjamín Patel, Lolis Bush, Del Nino and colleagues, with an educational kiki from [email or web address]. AGAPITO-7 Assessment Billing AGAPITO-7 Assessment Tool: AGAPITO-7 Assessment 40387 Review of Systems Const All systems reviewed & are unremarkable except as noted in HPI and below Card Denies chest pain at rest, Denies chest pain with activity, Denies edema, Denies irregular heart rhythm, Denies claudication, Denies dyspnea, Denies dyspnea on exertion, Denies orthopnea, Denies paroxysmal nocturnal dyspnea and Denies slow heart rate Resp Denies cough, Denies dyspnea and Denies dyspnea on exertion GI Denies abdominal pain, Denies change in bowel habits, Denies excessive flatus, Denies nausea and Denies vomiting Physical exam (Primary Care) Vital Signs: Last Vital Signs BP 106/70 11/17/24 08:21 BMI result Body Mass Index 26.1 Tobacco/Smoking Status: Tobacco use Status Tobacco use date assessed 11/17/24 11/17/24 08:28 Patient Tobacco Use Status Never used Tobacco 11/17/24 08:28 e-Cigarette/Vaping Use Never Used 11/17/24 08:28 PHQ-9: PHQ-9 Score PHQ-9: Total score 1 11/17/24 08:28 Depression Screening Interpretation: Negative Thrive Assessment: Date of Thrive Assessment Date Thrive assessed 11/17/24 11/17/24 08:28 Currently or been in a relationship where the following occur: No concerns reported Chest Breast/axilla inspection: normal inspection of the breasts and normal inspection of the axillae Breast/axilla palpation: normal palpation of the axillae, no axillary lymphadenopathy and abnormal palpation of the breast (Left breast tender mass at 02:00 and at 08:00) Resp Effort & Inspection: normal respiratory effort Auscultation: clear to auscultation bilaterally Cardio Jugular venous distension: no JVD Rate: regular rate Rhythm: regular rhythm Heart sounds: S1 normal heart sound present and S2 normal heart sound present Extrem General: Yes full ROM Coding Level of Care Code Est Pt Level 4 (78853) Complex EM visit Add On G2211 Diagnoses Breast mass, left N63.20 Migraines G43.909 Dyslipidemia E78.5 Mild recurrent major depression F33.0 Anxiety F41.9 Maxillary sinus cyst J34.1 Additional Codes PHQ-9 - 62166 - PHQ-9 Billing: Yes ([id number]) AGAPITO-7 Assessment Billing - AGAPITO-7 Assessment Tool: AGAPITO-7 Assessment 85595 ([id number]) Time Spent (min) 23 Assessment & Plan Assessment & Plan (1) Breast mass, left: Code(s): N63.20 - Unspecified lump in the left breast, unspecified quadrant Category: Medical (2) Migraines: Code(s): G43.909 - Migraine, unspecified, not intractable, without status migrainosus Category: Medical (3) Dyslipidemia: Code(s): E78.5 - Hyperlipidemia, unspecified Category: Medical (4) Mild recurrent major depression: Code(s): F33.0 - Major depressive disorder, recurrent, mild Category: Medical (5) Anxiety: Code(s): F41.9 - Anxiety disorder, unspecified Category: Medical (6) Maxillary sinus cyst: Code(s): J34.1 - Cyst and mucocele of nose and nasal sinus Category: Medical Plan The management plan for this visit includes imaging studies for the left breast mass to determine its characteristics and potential malignancy. The patient is encouraged to take Topamax as a consistent daily regimen for migraine prophylaxis. Referrals to specialists for ENT and a different neurologist for migraine are reaffirmed, alongside continuous management with sertraline for her anxiety and depression. Instructions to maintain healthy lifestyle modifications are reiterated to manage hyperlipidemia. Attending appointments is emphasized for effective continuity of care and periodic evaluations. Patient was informed and verbally consented to the use of an ambient scribe for clinic note documentation during this visit. I discussed with the patient the rationale for ordering diagnostic imaging to evaluate the breast mass further, explaining that mammography and ultrasound are essential for determining the nature of the mass. We also discussed the effectiveness of a daily Topamax regimen for migraine prophylaxis, emphasizing the necessity of adherence to the medication. I reiterated the importance of following through with specialist referrals for comprehensive management of her symptoms. I also discussed potential lifestyle adaptations to manage hyperlipidemia, clarifying her low risk per the Havre score and the importance of maintaining wellness schedules to address chronic conditions effectively. The patient is encouraged to maintain scheduled medical follow-ups and address concerns as they arise. Orders: Orders US breast LT limited Today N63.20 - Unspecified lump in the left breast, unspecified quadrant MM diagnostic mammo BI Today N63.20 - Unspecified lump in the left breast, unspecified quadrant Referrals Neurology Referral G43.909 - Migraine, unspecified, not intractable, without status migrainosus Medications: Refilled sumatriptan succinate do not exceed 4 doses per 24 hrs 50 mg PO Q2-4H PRN 9 tabs 0RF migraine headache Discontinued sumatriptan succinate do not exceed 8 doses per 24 hrs Discontinued Reason: Patient Completed Course 25 mg PO Q2-4H 30 days PRN 9 tabs 3RF migraine headache Patient Instructions: - Schedule and attend a mammogram and ultrasound for the left breast mass. - Take Topamax daily as directed for migraine prophylaxis. - Continue taking sertraline for anxiety and depression. - Follow up with the neurologist and ENT specialist as referrals are given and as promptly as possible. - Monitor the breast mass for any changes and report them immediately. - Maintain lifestyle modifications to control cholesterol, such as a healthy diet and exercise. - Ensure to keep all future medical appointments and reach out if there are any questions or concerns. - Be attentive to phone calls regarding urgent appointments for specialist referrals.
== END 2024-11-17 08:53 | disposition home or self-care (01) ==
LOC: HO.HMCH 08:02
PROVIDERS: PCP Internal Medicine; Visit Provider Internal Medicine
DX: N63.20 Unspecified lump in the left breast, unspecified quadrant (principal); G43.909 Migraine, unspecified, not intractable, without status migrainosus; E78.5 Hyperlipidemia, unspecified; F33.0 Major depressive disorder, recurrent, mild; F41.9 Anxiety disorder, unspecified; J34.1 Cyst and mucocele of nose and nasal sinus

== ENCOUNTER → 2024-11-17 08:01 | Outpatient (BNVA) | payer OTHER, SELFPAY | PROVIDERS: PCP Internal Medicine; Visit Provider Internal Medicine | DX: N63.25 Unspecified lump in the left breast, overlapping quadrants (principal); G43.909 Migraine, unspecified, not intractable, without status migrainosus; E78.5 Hyperlipidemia, unspecified; F33.0 Major depressive disorder, recurrent, mild; F41.9 Anxiety disorder, unspecified; J34.1 Cyst and mucocele of nose and nasal sinus | CPT/HCPCS: 96127; 99212 ==

== ENCOUNTER 2024-12-23 11:19 | Outpatient (REF) | payer MEDICAID, SELFPAY ==
--- NOTE | ~2024-12-23 | US_ITS ---
EXAMINATION: MM DIAGNOSTIC DIGITAL BREAST TOMOSYNTHESIS, BILATERAL Limited left breast ultrasound. CLINICAL INFORMATION: Left breast palpable lumps in the axilla and upper outer breast. COMPARISON: Mammography: Comparison is made with relevant prior exams. TECHNIQUE: Digital breast mammography with tomosynthesis is performed in both the craniocaudal and mediolateral oblique views along with computer-aided detection (CAD). FINDINGS: There are scattered areas of fibroglandular density (ACR BI-RADS breast composition Category b). Right: No suspicious masses calcifications or other abnormal findings. Left: BB palpable markers in the axilla and upper outer breast without underlying abnormality at site of palpable lumps. No suspicious calcifications masses or other abnormal findings. Targeted color Doppler ultrasound scanning in the left axilla demonstrates normal axillary tissue. There is no sonographic abnormality. Targeted color Doppler ultrasound scanning from 12-4 o'clock in the area the patient's palpable lump demonstrates normal fibroglandular breast tissue. There is no sonographic abnormal findings. Results are provided to the patient at time of visit by the technologist. US/US breast LT limited mamm only IMPRESSION: Right: Negative. Left: No mammographic or sonographic abnormality to account for the patient's left breast and axillary palpable lumps. Recommend clinical evaluation and follow-up. ASSESSMENT: BI-RADS BI-RADS 1 - Negative RECOMMENDATION: 1 year F/U This patient's information was entered into a reminder system with a target due date for their next mammogram. Electronically signed by: Mary Alice Ye DO 12/23/2024 12:08 PM EDT
--- OUTSIDE RECORDS SUMMARY | 2024-12-23 12:36 | XMS_ITS | Clinical Summary ---
Author Organization [facility] Address [address] [place] [address] Care Team Providers Care Director Data Architecture Name Role Phone IeshawesleyOsei NP Primary Care Provider [phone] Source Comments PLEASE NOTE, if this patient [...] of Treatment Not on file [facility] Care Teams Director Data Architecture Relationship Specialty Start Date End Date Osei Rascon NP [address] [place] [address] PCP - General 06/12/18
== END 2024-12-23 11:20 | disposition home or self-care (01) ==
LOC: HO.MAMMO 11:19
PROVIDERS: PCP Internal Medicine; Visit Provider Internal Medicine
DX: N63.21 Unspecified lump in the left breast, upper outer quadrant (principal)
CPT/HCPCS: 76642; 77062; 77066

== ENCOUNTER → 2024-12-23 12:00 | Outpatient (BNV) | payer MEDICAID, SELFPAY | PROVIDERS: PCP Internal Medicine; Visit Provider Internal Medicine | DX: N63.21 Unspecified lump in the left breast, upper outer quadrant (principal); R92.322 Mammographic fibroglandular density, left breast | CPT/HCPCS: 76642; 77062; 77066 ==

== ENCOUNTER 2025-03-12 09:23 | Outpatient (REF) | payer MEDICAID, SELFPAY ==
--- OUTSIDE RECORDS SUMMARY | 2025-03-12 09:30 | XMS_ITS | Clinical Summary ---
Author Organization [facility] Address [address] [place] [address] Care Team Providers Care Yellow Pages Space Salesperson Name Role Phone IeshawesleyOsei NP Primary Care Provider [phone] Source Comments PLEASE NOTE, if this patient [...] 70 11/25/2014 9:36 AM EDT Temperature 37.1 C (98.7 F) 11/25/2014 9:36 AM EDT Respiratory Rate 16 11/25/2014 9:36 AM EDT Oxygen Saturation - - Inhaled Oxygen Concentration - - Weight 60.8 kg (134 lb) 11/25/2014 9:36 AM EDT Height 152.4 cm (5') 11/25/2014 9:36 AM EDT Body Mass Index 26.17 11/25/2014 9:36 AM EDT Plan of Treatment Not on file Insurance [facility] Care Teams Yellow Pages Space Salesperson Relationship Specialty Start Date End Date Osei Rascon NP [facility] [place] [address] PCP - General 06/12/18
--- OUTSIDE RECORDS SUMMARY | 2025-03-12 09:30 | XMS_ITS | Clinical Summary ---
Author Organization [facility] Address [address] [place] [address] Phone Care Team Providers Care Insole Buffer Name Role Phone Aisha Olvera MD Primary Care Provider [phone] Allergies Active Allergy Reactions Criticality Noted Date Comments Amitriptyline Low 01/16/2022 Other Reaction(s): OTHER constipation Omeprazole Low 01/16/2022 Per pcp notes Pantoprazole 01/16/2022 Per pcp notes, inadequate response. Encounters Date Type Department Care Team Description 02/05/2025 10:35 AM EDT - 02/05/2025 5:40 PM EDT Emergency [facility] Emergency [address] [place] [address] Henry Simpson MD Nonintractable headache, unspecified chronicity pattern, unspecified headache type (Primary Dx) Discharge Disposition: Home or Self Care from Last 3 Months Medical History Medical History Date Comments Migraines DX:Migraines Esophageal reflux DX:Esophageal reflux Dyslipidemia DX:Dyslipidemia Social History Tobacco Use Types Packs/Day Years Used Date Smoking Tobacco: Never Smokeless Tobacco: Never Comments Unknown Sex and Gender Information Value Date Recorded Sex Assigned at Not on file Legal Sex Female 3:31 PM EST Gender Identity Not on file Sexual Orientation Not on file Obstetrics History Last Filed Vital Signs Vital Sign Reading Time Taken Comments Blood Pressure 121/76 02/05/2025 5:34 PM EDT Pulse 72 02/05/2025 5:34 PM EDT Temperature 36.7 C (98.1 F) 02/05/2025 5:34 PM EDT Respiratory Rate 16 02/05/2025 5:34 PM EDT Oxygen Saturation 100% 02/05/2025 5:34 PM EDT Inhaled Oxygen Concentration - - Weight 65.8 kg (145 lb) 02/05/2025 10:27 AM EDT Height 149.9 cm (4' 11 ) 02/05/2025 10:27 AM EDT Body Mass Index 29.29 02/05/2025 10:27 AM EDT Plan of Treatment Health Maintenance Due Date Last Done Comments Breast Cancer Screening 1971 Hepatitis B Vaccines (1 of 3 - 19+ 3-dose series) 1990 Cervical Cancer Screening: P ap Smear 1992 Pneumococcal Vaccine: 50+ Years (1 of 1 - PCV) 2021 COVID-19 Vaccine (2 - 2023-2 5 season) 2024 03/14/2023 Depression Screening 08/05/2024 Colorectal Cancer Screening: Colonoscopy 02/05/2025 HIV Screening 02/05/2025 Hepatitis C Screening 02/05/2025 Social Influencers of Health Screening 02/05/2025 Influenza Vaccine (#1) 2025 7, 07/19/2016 DTaP,Tdap,and Td Vaccines (2 - Td or Tdap) 07/19/2026 07/19/2016 Zoster Vaccines Completed 07/11/2023, 02/27/2023 HIB Vaccines Aged Out No longer eligi ble based on patient's age to complete this topic HPV Vaccines Aged Out No longer eligi ble based on patient's age to complete this topic Hepatitis A Vaccines Aged Out No long er eligible based on patient's age to complete this topic IPV Vaccines Aged Out No longer eligi ble based on patient's age to complete this topic MMR Vaccines Aged Out No longer eligi ble based on patient's age to complete this topic Meningococcal ACWY Vaccine Aged Out N o longer eligible based on patient's age to complete this topic Meningococcal B Vaccine Aged Out No l onger eligible based on patient's age to complete this topic RSV Immunization Patients Under 20 months Aged Out No longer eligible b ased on patient's age to complete this topic Varicella Vaccines Aged Out No longer eligible based on patient's age to complete this topic Procedures Procedure Name Priority Date/Time Associated Diagnosis Comments ECG ANNOTATED 02/08/2025 CT ANGIO HEAD/NECK WO AND/OR W CONTRAST STAT 02/05/2025 3:37 PM EDT XR CHEST 2 VIEWS STAT 02/05/2025 3:27 PM EDT ECG 12-LEAD STAT 02/05/2025 2:39 PM EDT TROPONIN I HIGH SENSITIVITY STAT 02/05/2025 2:33 PM EDT HCG, SERUM, QUALITATIVE STAT Add-on 02/05/2025 11:10 AM EDT CBC WITH AUTO DIFFERENTIAL STAT 02/05/2025 11:10 AM EDT COMPREHENSIVE METABOLIC PANEL STAT 02/05/2025 11:10 AM EDT CBC AND DIFFERENTIAL STAT 02/05/2025 11:10 AM EDT from Last 3 Months Results * ECG-Annotated (02/08/2025) us Provider Onbase MD ECG ORDERABLES Final Result * CT Angio Head/Neck wo and/or w Contrast (02/05/2025 3:37 PM EDT) Anatomical Region Laterality Modality Head and Neck Computed Tomogra phy 02/05/2025 4:01 PM EDT Impressions 02/05/2025 4:14 PM EDT NO ACUTE INTRACRANIAL ABNORMALITY. -------- FINAL REPORT -------- Dictated By: Eriberto Lee Dictated Date: 02/05/2025 16:01 ET Assigned Physician: Eriberto Lee Reviewed and Electronically Signed By: Eriberto Lee Signed Date: 02/05/2025 16:14 ET Workstation ID: [id number] Transcribed By: Self Edit Transcribed Date: 02/05/2025 16:03 ET Narrative 02/05/2025 4:14 PM EDT PROCEDURE: CTA HEAD AND NECK INDICATION: Dizziness, non-specific TECHNIQUE: CTA of the head and neck with intravenous contrast. Multiplanar reformats. The examination was performed utilizing dose reduction techniques.3-D or MIP images were produced with postprocessing on an independent computer workstation. 90cc Omnipaque 370 injected. Scan was analyzed using [employer] based computer aided triage software. Total DLP: mGy/cm COMPARISON: No priors available. FINDINGS: Noncon Brain: Cerebral hemispheres are symmetric without evidence for mass, hemorrhage or CT evidence for acute territorial infarct. CTA Neck: There is a left-sided aortic arch. Great vessels are patent with conventional anatomy. Common carotid and internal carotid arteries are patent in the neck. Cervical vertebral arteries are patent. Visualized lung apices are clear. Soft tissues of the neck are normal. CTA Head: Intracranial portions of the internal carotid arteries are patent. Proximal middle and anterior circulation is patent. Vertebrobasilar system is patent. Proximal imaging analyst are patent. Major dural venous sinuses opacify normally with contrast. Mucous retention cyst left maxillary sinus.. Degenerative changes in the bones. Procedure Note Eriberto Lee MD - 02/05/2025 PROCEDURE: CTA HEAD AND NECK INDICATION: Dizziness, non-specific TECHNIQUE: CTA of the head and neck with intravenous contrast. Multiplanarreformats. The examination was performed utilizing dose reductiontechniques.3-D or MIP images were produced with postprocessing on anindependent computer workstation. 90cc Omnipaque 370 injected. Scan wasanalyzed using [employer] based computer aided triage software. Total DLP: mGy/cm COMPARISON: No priors available. FINDINGS: Noncon Brain: Cerebral hemispheres are symmetric without evidence for mass, hemorrhageor CT evidence for acute territorial infarct. CTA Neck: There is a left-sided aortic arch. Great vessels are patent withconventional anatomy. Common carotid and internal carotid arteries arepatent in the neck. Cervical vertebral arteries are patent. Visualized lung apices are clear. Soft tissues of the neck are normal. CTA Head: Intracranial portions of the internal carotid arteries are patent. Proximal middle and anterior circulation is patent. Vertebrobasilar system is patent. Proximal imaging analyst are patent. Major dural venous sinuses opacify normally with contrast. Mucous retention cyst left maxillary sinus.. Degenerative changes in thebones. IMPRESSION: NO ACUTE INTRACRANIAL ABNORMALITY. -------- FINAL REPORT -------- Dictated By: Eriberto Lee Dictated Date: 02/05/2025 16:01 ET Assigned Physician: Eriberto Lee Reviewed and Electronically Signed By: Eriberto Lee Signed Date: 02/05/2025 16:14 ET Workstation ID: [id number] Transcribed By: Self Edit Transcribed Date: 02/05/2025 16:[address] PROCEDURES Final Result * XR Chest 2 Views (02/05/2025 3:27 PM EDT) Anatomical Region Laterality Modality Body Radiographic Fany ging 02/05/2025 3:46 PM EDT Impressions 02/05/2025 3:46 PM EDT FINDINGS/IMPRESSION: Normal heart size and pulmonary vascularity. Lungs are clear and costophrenic angles are sharp. No acute osseous abnormality. -------- FINAL REPORT -------- Dictated By: Eriberto Lee Dictated Date: 02/05/2025 15:46 ET Assigned Physician: Eriberto Lee Reviewed and Electronically Signed By: Eriberto Lee Signed Date: 02/05/2025 15:46 ET Workstation ID: [id number] Transcribed By: Self Edit Transcribed Date: 02/05/2025 15:46 ET Narrative 02/05/2025 3:46 PM EDT XR CHEST 2 VIEWS INDICATION: pain TECHNIQUE: XR CHEST 2 VIEWS COMPARISON: No priors available. Procedure Note Eriberto Lee MD - 02/05/2025 XR CHEST 2 VIEWS INDICATION: pain TECHNIQUE: XR CHEST 2 VIEWS COMPARISON: No priors available. IMPRESSION: FINDINGS/IMPRESSION: Normal heart size and pulmonary vascularity. Lungsare clear and costophrenic angles are sharp. No acute osseousabnormality. -------- FINAL REPORT -------- Dictated By: Eriberto Lee Dictated Date: 02/05/2025 15:46 ET Assigned Physician: Eriberto Lee Reviewed and Electronically Signed By: Eriberto Lee Signed Date: 02/05/2025 15:46 ET Workstation ID: [id number] Transcribed By: Self Edit Transcribed Date: 02/05/2025 15:46 ET [facility] NEIL XR PROCEDURES Final Result * ECG 12 lead (02/05/2025 2:39 PM EDT) [facility] Ventricular Rate ECG 64 BPM GEMUSE Atrial Rate 64 BPM GEMUSE P-R Interval 198 ms GEMUSE QRS Duration 82 ms GEMUSE Q-T Interval 408 ms GEMUSE QTc 420 ms GEMUSE P Wave [place] 50 degrees GEMUSE R [place] 64 degrees GEMUSE T [place] 60 degrees GEMUSE ECG Interpretation Normal sinus rhythm Possible Left atrial enlargement Left ventricular hypertrophy Abnormal ECG No previous ECGs available Confirmed by LINDSEY CHEW ([id number]) on 02/06/2025 7:57:14 AM GEMUSE 02/05/2025 2:39 PM EDT 02/06/2025 7:57 AM EDT Henry Simpson MD ECG ORDERABLES Final Result Performing Organization Address [facility] Co de Phone Number GEMUSE * Troponin I high sensitivity (02/05/2025 2:33 PM EDT) [facility] High Sensitivity Troponin I 3 <=54 ng/L LAB CHEMISTRY METHOD 02/05/2025 4:11 PM EDT [facility] Blood Venous blood specimen / Unknown Venipuncture / Unknown 02/05/2025 2:33 PM EDT 02/05/2025 3:34 PM EDT Narrative [facility] - 02/05/2025 4:11 PM EDT High levels of biotin in samples may falsely decrease hsTroponin values. Use caution when interpreting hsTroponin results in patients taking biotin who exhibit renal impairment (eGFR <60) or in patients taking more than 20 mg/day of biotin. us Henry Simpson MD LAB BLOOD ORDERABLES Final Resu lt Performing Organization Address City/[facility]/ZIP Co de Phone Number [facility] [address] [place] [address], [place] [phone] * (ABNORMAL) CBC auto differential (02/05/2025 11:10 AM EDT) [facility] WBC 3.7(L) 4.8 - 10.8 K/mcL LAB HEMETOLOGY METHOD 02/05/2025 11:28 AM [facility] RBC 4.60 3.80 - 4.80 M/mcL LAB HEMETOLOGY METHOD 02/05/2025 11:28 AM [facility] Hemoglobin 12.4 11.5 - 16.0 g/dL LAB HEMETOLOGY METHOD 02/05/2025 11:28 AM [facility] Hematocrit 39.1 35.0 - 47.0 % LAB HEMETOLOGY METHOD 02/05/2025 11:28 AM [facility] MCV 85.9 79.0 - 98.0 FL LAB HEMETOLOGY METHOD 02/05/2025 11:28 AM [facility] MCH 27.3 27.0 - 32.0 pcg LAB HEMETOLOGY METHOD 02/05/2025 11:28 AM [facility] MCHC 31.7(L) 32.0 - 37.0 g/dL LAB HEMETOLOGY METHOD 02/05/2025 11:28 AM [facility] RDW 13.2 11.0 - 15.0 % LAB HEMETOLOGY METHOD 02/05/2025 11:28 AM [facility] Platelets 289 130 - 400 K/mcL LAB HEMETOLOGY METHOD 02/05/2025 11:28 AM [facility] MPV 9.3 7.0 - 11.0 FL LAB HEMETOLOGY METHOD 02/05/2025 11:28 AM [facility] NRBC 0.0 <1.0 % LAB HEMETOLOGY METHOD 02/05/2025 11:28 AM [facility] NRBC Absolute 0.00 <0.10 K/mcL LAB HEMETOLOGY METHOD 02/05/2025 11:28 AM [facility] Neutrophils Relative 36.4 % LAB HEMETOLOGY METHOD 02/05/2025 11:28 AM [facility] Lymphocytes Relative 52.7 % LAB HEMETOLOGY METHOD 02/05/2025 11:28 AM [facility] Monocytes Relative 7.9 % LAB HEMETOLOGY METHOD 02/05/2025 11:28 AM [facility] Eosinophils Relative 2.2 % LAB HEMETOLOGY METHOD 02/05/2025 11:28 AM [facility] Basophils Relative 0.8 % LAB HEMETOLOGY METHOD 02/05/2025 11:28 AM [facility] Immature Granulocytes Relative 0.0 % LAB HEMETOLOGY METHOD 02/05/2025 11:28 AM [facility] Neutrophils Absolute 1.34(L) 1.50 - 7.00 K/mcL LAB HEMETOLOGY METHOD 02/05/2025 11:28 AM [facility] Lymphocytes Absolute 1.94 1.00 - 5.00 K/mcL LAB HEMETOLOGY METHOD 02/05/2025 11:28 AM [facility] Monocytes Absolute 0.29 0.20 - 1.00 K/mcL LAB HEMETOLOGY METHOD 02/05/2025 11:28 AM [facility] Eosinophils Absolute 0.08 0.00 - 0.50 K/mcL LAB HEMETOLOGY METHOD 02/05/2025 11:28 AM [facility] Basophils Absolute 0.03 0.00 - 0.20 K/mcL LAB HEMETOLOGY METHOD 02/05/2025 11:28 AM [facility] Immature Granulocytes Absolute 0.00 0.00 - 0.03 K/mcL LAB HEMETOLOGY METHOD 02/05/2025 11:28 AM [facility] Blood Venous blood specimen / Unknown Venipuncture / Unknown 02/05/2025 11:10 AM EDT 02/05/2025 11:23 AM EDT Lindsey Song DO LAB BLOOD ORDERABLES Final Res ult Performing Organization Address [facility]/ZIP Co de Phone Number [facility] [address] [place] [address], [place] [phone] * hCG, serum, qualitative (02/05/2025 11:10 AM EDT) [facility] hCG Qual Negative Negative 02/05/2025 2:58 PM EDT [facility] Blood Venous blood specimen / Unknown Venipuncture / Unknown 02/05/2025 11:10 AM EDT 02/05/2025 11:23 AM EDT Henry Simpson MD LAB BLOOD ORDERABLES Final Resu lt Performing Organization Address [facility]/ZIP Co de Phone Number [facility] [address] [place] [address], [place] [phone] * Comprehensive metabolic panel (02/05/2025 11:10 AM EDT) [facility] Sodium 141 133 - 145 mmol/L LAB CHEMISTRY METHOD 02/05/2025 11:53 AM T [facility] Potassium 4.2 3.5 - 5.5 mmol/L LAB CHEMISTRY METHOD 02/05/2025 11:53 AM EDT [facility] Chloride 109 96 - 110 mmol/L LAB CHEMISTRY METHOD 02/05/2025 11:53 AM [facility] CO2 28 21 - 32 mmol/L LAB CHEMISTRY METHOD 02/05/2025 11:53 AM T [facility] Anion Gap 4 3 - 11 LAB CHEMISTRY METHOD 02/05/2025 11:53 AM [facility] Glucose 90 70 - 100 mg/dL LAB CHEMISTRY METHOD 02/05/2025 11:53 AM [facility] BUN 14 5 - 25 mg/dL LAB CHEMISTRY METHOD 02/05/2025 11:53 AM [facility] Creatinine 0.82 0.50 - 1.10 mg/dL LAB CHEMISTRY METHOD 02/05/2025 11:53 AM [facility] eGFR 86 >=60 mL/min/1. 73m2 LAB CHEMISTRY METHOD 02/05/2025 11:53 AM [facility] Comment:Calculation based on the Chronic Kidney Disease Epidemiology Collaboration (CKD-EPI) equation refit without adjustment for race. BUN/Creatinine Ratio 17.1 LAB CHEMISTRY METHOD 02/05/2025 11:53 AM [facility] Calcium 8.9 8.5 - 10.5 mg/dL LAB CHEMISTRY METHOD 02/05/2025 11:53 AM [facility] AST (SGOT) 18 10 - 42 unit/L LAB CHEMISTRY METHOD 02/05/2025 11:53 AM [facility] ALT (SGPT) 29 10 - 60 unit/L LAB CHEMISTRY METHOD 02/05/2025 11:53 AM [facility] Alkaline Phosphatase 63 42 - 121 unit/L LAB CHEMISTRY METHOD 02/05/2025 11:53 AM [facility] Total Protein 7.4 6.0 - 8.0 g/dL LAB CHEMISTRY METHOD 02/05/2025 11:53 AM [facility] Albumin 3.7 3.2 - 5.0 g/dL LAB CHEMISTRY METHOD 02/05/2025 11:53 AM [facility] Total Bilirubin 0.4 0.0 - 1.4 mg/dL LAB CHEMISTRY METHOD 02/05/2025 11:53 AM [facility] Blood Venous blood specimen / Unknown Venipuncture / Unknown 02/05/2025 11:10 AM EDT 02/05/2025 11:23 AM EDT us Lindsey Song DO LAB BLOOD ORDERABLES Final Res ult [facility] ([facility] [address] [place] [address], [place] [phone] from Last 3 Months Insurance MEDICAID - [place] Care Teams Insole Buffer Relationship Specialty Start Date End Date Aisha Olvera MD [address] [facility] , [address] [facility] Physician Associ D/B/A: [facility] TERRI Agee PCP - General Internal Medicine 05/02/13
[2025-03-12 09:41] LABS: MANUAL DIFF FLAG NO
[2025-03-12 10:46] LABS: Hematocrit 38.2 % (37.0-47.0); Hemoglobin 12.4 g/dl (12.0-16.0); Imm Gran Abs Auto 0.01 X10*3/uL (0.00-0.03); Imm Gran Pct Auto 0.2 % (0.0-0.4); Lymphocytes Absolute Auto 2.2 X10*3/uL (1.2-4.9); Mean Corpuscular HGB Conc 32.5 g/dl (31.0-35.0); Mean Corpuscular Hemoglobin 26.7 pg (27.0-33.0); Mean Corpuscular Volume 82.3 fL (80.0-98.0); NRBC Abs Auto 0.000 X10*3/uL (0.0-0.012); NRBC Pct Auto 0.0 /100WBC (0.0-0.2); Platelet Count 302 X10*3/uL (160-400); Red Blood Count 4.64 X10*6/uL (4.20-5.50); White Blood Count 4.0 X10*3/uL (4.8-10.8)
[2025-03-12 11:15] LABS: Alanine Aminotransferase 24 U/L (0-31); Albumin Level 4.3 g/dL (3.5-5.0); Alkaline Phosphatase 61 U/L (39-117); Anion Gap 11 (12-20); Aspartate Amino Transferase 27 U/L (5-31); Blood Urea Nitrogen 17 mg/dL (9-16); Calcium 8.9 mg/dL (8.4-10.2); Carbon Dioxide 26 mmol/L (22-29); Chloride 110 mmol/L (96-108); Cholesterol 209 mg/dL (<200); Estimated Glomerular Filt Rate > 60; HDL Cholesterol 50 mg/dL (>40); Potassium 3.9 mmol/L (3.3-5.1); Sodium 143 mmol/L (135-145); Total Protein 7.4 g/dL (6.5-8.0); Triglycerides 115 mg/dL (<150)
== END 2025-03-12 09:24 | disposition home or self-care (01) ==
LOC: HO.LAB 09:23
PROVIDERS: PCP Internal Medicine; Visit Provider Internal Medicine
DX: Z00.00 Encounter for general adult medical examination without abnormal findings (principal); E55.9 Vitamin D deficiency, unspecified; G43.909 Migraine, unspecified, not intractable, without status migrainosus
CPT/HCPCS: 36415; 80053; 80061; 82306; 85025

== ENCOUNTER 2025-03-15 08:23 | Outpatient (AMB) | payer MEDICAID, SELFPAY ==
--- NOTE | 2025-03-15 08:41 | MHC.PC.OV ---
Vital Signs 03/15/25 08:42 Height 5 ft 4 in Weight 151 lb BMI 25.9 BP 120/74 Blood Pressure Location Lt brachial Position Sitting Pulse Source Pulse Oximeter Oxygen Delivery Method Room Air Intake Visit Reasons: annual Sports Lawyer Required: No Accompanied by: Self / Same As Patient Allergies amitriptyline Allergy (Intermediate, Verified 03/15/25 08:41) constipation tree nut (TREE NUT) Allergy (Intermediate, Verified 03/15/25 08:41) THROAT ITCHES omeprazole Adverse Reaction (Intermediate, Verified 03/15/25 08:41) inadequate response pantoprazole Adverse Reaction (Intermediate, Verified 03/15/25 08:41) inadequate response ranitidine Adverse Reaction (Intermediate, Verified 03/15/25 08:41) inadequate response FRUIT, SKINS Allergy (Intermediate, Uncoded 11/17/24 08:37) THROAT ITCHES Tobacco use date assessed: 03/15/25 Dental Screening Dental Screen Date: 03/15/25 Did you have a dental visit in the last 12 months?: No Did you have a dental problem in the last 6 months where you did not have access to dental care?: No Was dental information given to patient?: No HPI HPI Comments History of Present Illness Details The patient is a 54-year-old female presenting with a wellness check-up and management of chronic conditions. She has a history of depression with anxiety, for which she is prescribed sertraline 25 mg. The patient reports mild symptoms with a PHQ-9 score of 7, indicating mild depression. She does not see a psychiatrist or counselor for this condition. The patient also suffers from migraines, for which she takes sumatriptan 50 mg and topiramate at night. She recently visited the emergency department for a headache, where a CT scan of the head and neck, laboratory tests, and an electrocardiogram were performed. The electrocardiogram showed left ventricular hypertrophy, and an echocardiogram has been recommended to further evaluate this finding. The patient has a history of vitamin D deficiency, with the last recorded low level in March. She is advised to take vitamin D supplements and consider dietary sources such as salmon. She has a history of gastroesophageal reflux disease, for which she takes famotidine. Preventative care measures discussed include colon cancer screening with a stool test and a Pap smear, as the last Pap smear was over 7-8 years ago. [facility] Medical History (Updated 08/11/25 @ 09:10 by Aisha Olvera MD) Pineal gland cyst Hypovitaminosis D Dyslipidemia Callus of foot Headache GERD (gastroesophageal reflux disease) Surgical History History of esophagogastroduodenoscopy (EGD) History of tubal ligation Family History Father Medical history unknown Mother Diabetes Hypertension Brother Homicide Maternal Grandmother Myocardial infarction Brother Homicide Brother In good health Daughter In good health Daughter In good health Son In good health Son In good health Social History Housing: Apartment Alcohol intake: never Patient Tobacco Use Status: Never used Tobacco e-Cigarette/Vaping Use: Never Used Second Hand Smoke Exposure: No service: No Current occupational status: other Cognitive needs: No Hearing needs: No Vision needs: Yes Questionnaire PHQ-9 Over the last 2 weeks, how often have you been bothered by any of the following problems? 1. Little interest or pleasure in doing things: several days 2. Feeling down, depressed, or hopeless: several days 3. Trouble falling or staying asleep, or sleeping too much: several days 4. Feeling tired or having little energy: several days 5. Poor appetite or overeating: several days 6. Feeling bad about yourself - or that you are a failure or have let yourself or your family down: not at all 7. Trouble concentrating on things, such as reading the newspaper or watching television: several days 8. Moving or speaking so slowly that other people could have noticed. Or the opposite - being so fidgety or restless that you have been moving around a lot more than usual: several days 9. Thoughts that you would be better off or of hurting yourself in some way: not at all Total score: 7 Depression Screening Interpretation: Positive Depression Screening Follow-up: Existing condition, In treatment and Follow-up Visit Requested Depression Screening Done: Yes 36476 - PHQ-9 Billing: Yes Source: Developed by Drs. Benjamín Patel, Lolis Bush, Del Nino and colleagues, with an educational kiki from [employer]. Thrive Questionnaire Date Thrive assessed: 03/15/25 I am a: Patient What is your living situation today?: I have a steady place to live Within the past 12 months, did the food you bought not last and you didn't have the money to get more?: Never true Within the past 12 months, did you worry whether your food would run out before you got money to buy more?: Never true Do you have trouble paying for medicines?: No Do you have trouble getting transportation to medical appointments?: No Do you have trouble paying your heating and electricity bill?: No Do you have trouble taking care of your child, family member or friend?: No Do you have trouble with day-to-day activities such as bathing, preparing meals, shopping, managing finances, etc.?: Yes Are you currently unemployed and looking for a job?: No Are you interested in more education?: No Please select the resources that you would like help with: None Currently or been in a relationship where the following occur: No concerns reported THRIVE Score: 0 AUDIT C Alcohol Use Questionnaire (AUDIT-C) 1. How often do you have a drink containing alcohol?: Never Total Score: 0 Score Reviewed/Action Taken: No AGAPITO-7 AMB Questionnaire AGAPITO-7 Date AGAPITO - 7 assessed: 03/15/25 Feeling nervous, anxious, or on edge: 1 = Several days Not being able to stop or control worryin = Several days Worrying too much about different things: 1 = Several days Trouble relaxin = Several days Being so restless that it is hard to sit still: 1 = Several days Becoming easily annoyed or irritable: 1 = Several days Feeling afraid as if something awful might happen: 1 = Several days Total AGAPITO-7 score (0-4 normal; 5-9 mild; 10-14 moderate; 15-21 severe): 7 Source: Developed by Drs. Benjamín Patel, Lolis Bush, Del Nino and colleagues, with an educational kiki from [employer]. AGAPITO-7 Assessment Billing AGAPITO-7 Assessment Tool: AGAPITO-7 Assessment 77745 Review of Systems Const All systems reviewed & are unremarkable except as noted in HPI and below Card Denies chest pain at rest, Denies chest pain with activity, Denies edema, Denies irregular heart rhythm, Denies claudication, Denies dyspnea, Denies dyspnea on exertion, Denies orthopnea, Denies paroxysmal nocturnal dyspnea and Denies slow heart rate Resp Denies cough, Denies dyspnea and Denies dyspnea on exertion GI Denies abdominal pain, Denies change in bowel habits, Denies excessive flatus, Denies nausea and Denies vomiting Neuro Denies behavioral changes and Denies lack of coordination Psych Denies behavioral changes Physical exam (Primary Care) Vital Signs: Last Vital Signs BP 120/74 03/15/25 08:42 Oxygen Delivery Method Room Air 03/15/25 08:42 BMI result Body Mass Index 25.9 Tobacco/Smoking Status: Tobacco use Status Tobacco use date assessed 03/15/25 03/15/25 08:47 Patient Tobacco Use Status Never used Tobacco 03/15/25 08:47 e-Cigarette/Vaping Use Never Used 03/15/25 08:47 PHQ-9: PHQ-9 Score PHQ-9: Total score 7 03/15/25 08:47 Depression Screening Interpretation: Positive Depression Screening Follow-up: Existing condition, In treatment and Follow-up Visit Requested Thrive Assessment: Date of Thrive Assessment Date Thrive assessed 03/15/25 03/15/25 08:47 Currently or been in a relationship where the following occur: No concerns reported HENCA Head: Yes normal to inspection, Yes normocephalic and Yes atraumatic Ears: external ears normal Eyes General: appearance normal, both eyes and all related structures Eyelids: Yes eyelids normal Conjunctivae: conjunctivae normal Neck Neck: Yes normal visual inspection and Yes supple Resp Effort & Inspection: normal respiratory effort Auscultation: clear to auscultation bilaterally Cardio Jugular venous distension: no JVD Rate: regular rate Rhythm: regular rhythm Heart sounds: S1 normal heart sound present and S2 normal heart sound present GI Inspection: Yes normal to inspection Palpation (GI): Soft to palpation and nontender Auscultation: normal bowel sounds Skin General skin exam: no rashes or lesions noted Neuro General: no focal motor deficits Extrem General: Yes full ROM Psych Appearance: grossly normal Coding Level of Care Code Est Pt Level 3 (81963) Est Pt Prev Care 40-64y(45777) Diagnoses Physical exam Z00.00 Mild recurrent major depression F33.0 LVH (left ventricular hypertrophy) I51.7 Additional Codes AGAPITO-7 Assessment Billing - AGAPITO-7 Assessment Tool: AGAPITO-7 Assessment 69016 ([id number]) PHQ-9 - 50727 - PHQ-9 Billing: Yes ([id number]) Time Spent (min) 33 Assessment & Plan Assessment & Plan (1) Physical exam: Code(s): Z00.00 - Encounter for general adult medical examination without abnormal findings Category: Medical (2) Mild recurrent major depression: Code(s): F33.0 - Major depressive disorder, recurrent, mild Category: Medical (3) LVH (left ventricular hypertrophy): Code(s): I51.7 - Cardiomegaly Category: Medical Plan The patient will continue taking sertraline 25 mg for depression with anxiety, and it is advised to maintain regular intake to manage symptoms effectively. For migraines, the patient is to continue with sumatriptan 50 mg and topiramate at night. An echocardiogram is recommended to further evaluate the left ventricular hypertrophy noted on the electrocardiogram. Vitamin D supplementation is advised due to previous low levels, and dietary sources such as salmon are recommended. Preventative care includes scheduling a Pap smear and considering a stool test for colon cancer screening. Patient was informed and verbally consented to the use of an ambient scribe for clinic note documentation during this visit. Orders: Orders CA echo transthoracic complete Today I51.7 - Cardiomegaly Referrals Cologuard Test Z12.11 - Encounter for screening for malignant neoplasm of colon, Z12.12 - Encounter for screening for malignant neoplasm of rectum PRESS SMITH HELPER Referral Z12.4 - Encounter for screening for malignant neoplasm of cervix
[2025-03-15 08:42] VITALS: BP 120/74; BMI 25.9
--- OUTSIDE RECORDS SUMMARY | 2025-03-15 08:42 | XMS_ITS | Clinical Summary ---
Author Organization [facility] Address [address] [place] [address] Care Team Providers Care Electrician Assistant Name Role Phone IeshawesleyOsei NP Primary Care Provider [phone] Source Comments PLEASE NOTE, if this patient [...] 0 03/29/2019 Safety and Environment Answer Date Dedie rded Safety 0 03/29/2019 Utilities Answer Date [...] on file Insurance [employer] Care Teams Electrician Assistant Relationship Specialty Start Date End Date Osei Rascon NP [facility] [place] [address] PCP - General 06/12/18
--- OUTSIDE RECORDS SUMMARY | 2025-03-15 08:42 | XMS_ITS | Clinical Summary ---
Author Organization [facility] Address [address] [place] [address] Phone Care Team Providers Care Clinical Informatics Manager Name Role Phone Aisha Olvera MD Primary Care Provider [phone] Allergies Active Allergy Reactions Criticality Noted Date Comments Amitriptyline Low 01/16/2022 Other Reaction(s): OTHER constipation Omeprazole Low 01/16/2022 Per pcp notes Pantoprazole 01/16/2022 Per pcp notes, inadequate response. Encounters Date Type Department Care Team Description 02/05/2025 10:35 AM EDT - 02/05/2025 5:40 PM EDT Emergency [facility] Emergency [address] [place] [address] Henry Simpson MD Nonintractable headache, [...] Signed Date: 02/05/2025 16:14 ET Workstation ID: [id number] Transcribed By: Self Edit Transcribed Date: 02/05/2025 16:03 ET Narrative 02/05/2025 4:14 PM EDT PROCEDURE: CTA HEAD AND NECK INDICATION: Dizziness, non-specific TECHNIQUE: CTA of the head and neck with intravenous contrast. Multiplanar reformats. The examination was performed utilizing dose reduction techniques.3-D or MIP images were produced with postprocessing on an independent computer workstation. 90cc Omnipaque 370 injected. Scan was analyzed using Dragonfly List based computer aided triage software. Total DLP: [...] is patent. Vertebrobasilar system is patent. Proximal pest control service sales agent are patent. Major dural venous sinuses opacify [...] 90cc Omnipaque 370 injected. Scan wasanalyzed using Dragonfly List based computer aided triage software. Total DLP: [...] is patent. Vertebrobasilar system is patent. Proximal pest control service sales agent are patent. Major dural venous sinuses opacify normally with contrast. Mucous retention cyst left maxillary sinus.. Degenerative changes in thebones. IMPRESSION: NO ACUTE INTRACRANIAL ABNORMALITY. -------- FINAL REPORT -------- Dictated By: Eriberto Lee Dictated Date: 02/05/2025 16:01 ET Assigned Physician: Eriberto Lee Reviewed and Electronically Signed By: Eriberto Lee Signed Date: 02/05/2025 16:14 ET Workstation ID: [id number] Transcribed By: Self Edit Transcribed Date: 02/05/2025 [...] Signed Date: 02/05/2025 15:46 ET Workstation ID: [id number] Transcribed By: Self Edit Transcribed Date: 02/05/2025 [...] Signed Date: 02/05/2025 15:46 ET Workstation ID: [id number] Transcribed By: Self Edit Transcribed Date: 02/05/2025 15:46 ET [facility] NEIL XR PROCEDURES Final Result * ECG 12 lead (02/05/2025 2:39 PM EDT) [facility] Ventricular Rate ECG 64 BPM GEMUSE Atrial Rate 64 BPM GEMUSE P-R Interval 198 ms GEMUSE QRS Duration 82 ms GEMUSE Q-T Interval 408 ms GEMUSE QTc 420 ms GEMUSE P Wave [place]ene 50 degrees GEMUSE R [place] 64 degrees GEMUSE T [place] 60 degrees GEMUSE ECG Interpretation Normal sinus rhythm Possible Left atrial enlargement Left ventricular hypertrophy Abnormal ECG No previous ECGs available Confirmed by LINDSEY CHEW ([id number]) on 02/06/2025 7:57:14 AM GEMUSE 02/05/2025 2:39 PM EDT 02/06/2025 7:57 AM EDT Henry Simpson MD ECG ORDERABLES Final Result Performing Organization Address [facility] Co de Phone Number GEMUSE * Troponin I high sensitivity (02/05/2025 2:33 PM EDT) [facility] High Sensitivity Troponin I 3 <=54 ng/L LAB CHEMISTRY METHOD 02/05/2025 4:11 PM EDT [facility] Blood Venous blood specimen / Unknown Venipuncture / Unknown 02/05/2025 2:33 PM EDT 02/05/2025 3:34 PM EDT Narrative [facility] - 02/05/2025 4:11 PM EDT High levels of biotin in samples may falsely decrease hsTroponin values. Use caution when interpreting hsTroponin results in patients taking biotin who exhibit renal impairment (eGFR <60) or in patients taking more than 20 mg/day of biotin. us Henry Simpson MD LAB BLOOD ORDERABLES Final Resu lt Performing Organization Address City/[facility]/ZIP Co de Phone Number [facility] [address] [place] [address], [place] [phone] * (ABNORMAL) CBC auto differential (02/05/2025 11:10 AM EDT) [facility] WBC 3.7(L) 4.8 - 10.8 K/mcL LAB HEMETOLOGY METHOD 02/05/2025 11:28 AM [facility] RBC 4.60 3.80 - 4.80 M/mcL LAB HEMETOLOGY METHOD 02/05/2025 11:28 AM [facility] Hemoglobin 12.4 11.5 - 16.0 g/dL LAB HEMETOLOGY METHOD 02/05/2025 11:28 AM [facility] Hematocrit 39.1 35.0 - 47.0 % LAB HEMETOLOGY METHOD 02/05/2025 11:28 AM [facility] MCV 85.9 79.0 - 98.0 FL LAB HEMETOLOGY METHOD 02/05/2025 11:28 AM [facility] MCH 27.3 27.0 - 32.0 pcg LAB HEMETOLOGY METHOD 02/05/2025 11:28 AM [facility] MCHC 31.7(L) 32.0 - 37.0 g/dL LAB HEMETOLOGY METHOD 02/05/2025 11:28 AM [facility] RDW 13.2 11.0 - 15.0 % LAB HEMETOLOGY METHOD 02/05/2025 11:28 AM [facility] Platelets 289 130 - 400 K/mcL LAB HEMETOLOGY METHOD 02/05/2025 11:28 AM [facility] MPV 9.3 7.0 - 11.0 FL LAB HEMETOLOGY METHOD 02/05/2025 11:28 AM [facility] NRBC 0.0 <1.0 % LAB HEMETOLOGY METHOD 02/05/2025 11:28 AM [facility] NRBC Absolute 0.00 <0.10 K/mcL LAB HEMETOLOGY METHOD 02/05/2025 11:28 AM [facility] Neutrophils Relative 36.4 % LAB HEMETOLOGY METHOD 02/05/2025 11:28 AM [facility] Lymphocytes Relative 52.7 % LAB HEMETOLOGY METHOD 02/05/2025 11:28 AM [facility] Monocytes Relative 7.9 % LAB HEMETOLOGY METHOD 02/05/2025 11:28 AM [facility] Eosinophils Relative 2.2 % LAB HEMETOLOGY METHOD 02/05/2025 11:28 AM [facility] Basophils Relative 0.8 % LAB HEMETOLOGY METHOD 02/05/2025 11:28 AM [facility] Immature Granulocytes Relative 0.0 % LAB HEMETOLOGY METHOD 02/05/2025 11:28 AM [facility] Neutrophils Absolute 1.34(L) 1.50 - 7.00 K/mcL LAB HEMETOLOGY METHOD 02/05/2025 11:28 AM [facility] Lymphocytes Absolute 1.94 1.00 - 5.00 K/mcL LAB HEMETOLOGY METHOD 02/05/2025 11:28 AM [facility] Monocytes Absolute 0.29 0.20 - 1.00 K/mcL LAB HEMETOLOGY METHOD 02/05/2025 11:28 AM [facility] Eosinophils Absolute 0.08 0.00 - 0.50 K/mcL LAB HEMETOLOGY METHOD 02/05/2025 11:28 AM [facility] Basophils Absolute 0.03 0.00 - 0.20 K/mcL LAB HEMETOLOGY METHOD 02/05/2025 11:28 AM [facility] Immature Granulocytes Absolute 0.00 0.00 - 0.03 K/mcL LAB HEMETOLOGY METHOD 02/05/2025 11:28 AM [facility] Blood Venous blood specimen / Unknown Venipuncture / Unknown 02/05/2025 11:10 AM EDT 02/05/2025 11:23 AM EDT Lindsey Song DO LAB BLOOD ORDERABLES Final Res ult Performing Organization Address [facility]/ZIP Co de Phone Number [facility] [address] [place] [address], [place] [phone] * hCG, serum, qualitative (02/05/2025 11:10 AM EDT) [facility] hCG Qual Negative Negative 02/05/2025 2:58 PM EDT [facility] Blood Venous blood specimen / Unknown Venipuncture / Unknown 02/05/2025 11:10 AM EDT 02/05/2025 11:23 AM EDT Henry Simpson MD LAB BLOOD ORDERABLES Final Resu lt Performing Organization Address [facility]/ZIP Co de Phone Number [facility] [address] [place] [address], [place] [phone] * Comprehensive metabolic panel (02/05/2025 11:10 AM EDT) [facility] Sodium 141 133 - 145 mmol/L LAB CHEMISTRY METHOD 02/05/2025 11:53 AM T [facility] Potassium 4.2 3.5 - 5.5 mmol/L LAB CHEMISTRY METHOD 02/05/2025 11:53 AM EDT [facility] Chloride 109 96 - 110 mmol/L LAB CHEMISTRY METHOD 02/05/2025 11:53 AM [facility] CO2 28 21 - 32 mmol/L LAB CHEMISTRY METHOD 02/05/2025 11:53 AM T [facility] Anion Gap 4 3 - 11 LAB CHEMISTRY METHOD 02/05/2025 11:53 AM [facility] Glucose 90 70 - 100 mg/dL LAB CHEMISTRY METHOD 02/05/2025 11:53 AM [facility] BUN 14 5 - 25 mg/dL LAB CHEMISTRY METHOD 02/05/2025 11:53 AM [facility] Creatinine 0.82 0.50 - 1.10 mg/dL LAB CHEMISTRY METHOD 02/05/2025 11:53 AM [facility] eGFR 86 >=60 mL/min/1. 73m2 LAB CHEMISTRY METHOD 02/05/2025 11:53 AM [facility] Comment:Calculation based on the Chronic Kidney Disease Epidemiology Collaboration (CKD-EPI) equation refit without adjustment for race. BUN/Creatinine Ratio 17.1 LAB CHEMISTRY METHOD 02/05/2025 11:53 AM [facility] Calcium 8.9 8.5 - 10.5 mg/dL LAB CHEMISTRY METHOD 02/05/2025 11:53 AM [facility] AST (SGOT) 18 10 - 42 unit/L LAB CHEMISTRY METHOD 02/05/2025 11:53 AM [facility] ALT (SGPT) 29 10 - 60 unit/L LAB CHEMISTRY METHOD 02/05/2025 11:53 AM [facility] Alkaline Phosphatase 63 42 - 121 unit/L LAB CHEMISTRY METHOD 02/05/2025 11:53 AM [facility] Total Protein 7.4 6.0 - 8.0 g/dL LAB CHEMISTRY METHOD 02/05/2025 11:53 AM [facility] Albumin 3.7 3.2 - 5.0 g/dL LAB CHEMISTRY METHOD 02/05/2025 11:53 AM [facility] Total Bilirubin 0.4 0.0 - 1.4 mg/dL LAB CHEMISTRY METHOD 02/05/2025 11:53 AM [facility] Blood Venous blood specimen / Unknown Venipuncture / Unknown 02/05/2025 11:10 AM EDT 02/05/2025 11:23 AM EDT us Lindsey Song DO LAB BLOOD ORDERABLES Final Res ult [facility] ([facility] [address] [place] [address], [place] [phone] from Last 3 Months Insurance MEDICAID - [place] Care Teams Clinical Informatics Manager Relationship Specialty Start Date End Date Aisha Olvera MD [address] [facility] , [address] [facility] D/B/A: [facility] TERRI Agee PCP - General Internal Medicine 05/02/13
== END 2025-03-15 09:10 | disposition home or self-care (01) ==
LOC: HO.HMCH 08:23
PROVIDERS: PCP Internal Medicine; Visit Provider Internal Medicine
DX: Z00.00 Encounter for general adult medical examination without abnormal findings (principal); I51.7 Cardiomegaly; F33.0 Major depressive disorder, recurrent, mild

== ENCOUNTER → 2025-03-15 08:23 | Outpatient (BNVA) | payer MEDICAID, SELFPAY | PROVIDERS: PCP Internal Medicine; Visit Provider Internal Medicine | DX: Z00.00 Encounter for general adult medical examination without abnormal findings (principal); F33.0 Major depressive disorder, recurrent, mild; I51.7 Cardiomegaly; F41.9 Anxiety disorder, unspecified; G43.909 Migraine, unspecified, not intractable, without status migrainosus; E55.9 Vitamin D deficiency, unspecified; K21.9 Gastro-esophageal reflux disease without esophagitis; Z79.899 Other long term (current) drug therapy | CPT/HCPCS: 96127; 99212; 99396 ==